=== PATIENT | male | born 1955 | race Caucasian/White ===

== ENCOUNTER 2017-05-14 12:48 | Emergency (ER) | payer OTHER ==
[2017-05-14 13:40] LABS: BASOPHILS 0.3 % (0-2); EOSINOPHILS 1.2 % (0-7); HEMATOCRIT 43.2 % (42.0-54.0); IMMATURE GRANULOCYTES 0.1 % (0-5); LYMPHOCYTES 17.1 % (15-50); MCH 30.5 pg (26.0-34.0); MCHC 34.7 g/dL (31.0-37.0); MEAN PLATELET VOLUME 10.2 fL (7.4-10.4); NEUTROPHILS 74.3 % (40-80); PLATELET COUNT 175 10x3/uL (130-400); RBC 4.91 10x6/uL (4.20-6.10); RDW 12.6 % (11.5-14.5); WBC 7.6 10x3/uL (4.8-10.8)
[2017-05-14 13:53] LABS: CALC OSMOLALITY 283 mosm/kg (275-300); CALCIUM 8.9 mg/dL (8.5-10.1); CARBON DIOXIDE 26.2 mmol/L (21.0-32.0); CHLORIDE - SERUM 107 mmol/L (98-107); GLUCOSE 137 mg/dL (74-106); POTASSIUM - SERUM 4.2 mmol/L (3.5-5.1); SODIUM 141 mmol/L (136-145); UREA NITROGEN 14 mg/dL (7-18); eGFR NON AFRICAN AMERICAN 81 mL/min (90-120)
== END 2017-05-14 15:01 | disposition home or self-care (01) ==
LOC: D.ER 12:48
PROVIDERS: Emergency Medicine
DX: S51.811A Laceration without foreign body of right forearm, initial encounter (principal); X58.XXXA Exposure to other specified factors, initial encounter; Y93.89 Activity, other specified; Y92.89 Other specified places as the place of occurrence of the external cause; Y99.8 Other external cause status

== ENCOUNTER 2019-04-14 17:12 | Inpatient (IN) | payer OTHER ==
[~2019-04-14] VITALS: Ht 180.3 cm; Wt 81.6 kg
[2019-04-14] MEDS ORDERED: PHENERGAN25 M1 PO (18:25)
[2019-04-14] MEDS ORDERED: VIGAMOX3 ML EACH EYE (18:27)
[2019-04-14] MEDS ORDERED: THORAZINE25 MG PO (18:27)
[2019-04-14] MEDS ORDERED: ROBAXIN500 MG PO (18:29)
[2019-04-14] MEDS ORDERED: HYDROCODON-ACE1 EA10 (18:29)
[2019-04-14] MEDS ORDERED: CYCLOBENZAPRINE10 MG PO (18:29)
[2019-04-14] MEDS ORDERED: MEDROL DOSE PACK4 MG (18:30)
--- NOTE | 2019-04-14 18:30 | NUR ---
RECEIVED TO ROOM 2210 AMBULATING. A/O X3. SKIN INTACT WITHOUT REDNESS. DENIES NEEDS.
[2019-04-14 20:00] VITALS: BP 129/94
[2019-04-14 22:57] VITALS: BP 129/94; BMI 25.1
[2019-04-14 23:42] LABS: HEMATOCRIT 39.6 % (42.0-54.0); HEMOGLOBIN 13.7 g/dL (13.5-17.5); MCH 28.8 pg (26.0-34.0); MCHC 34.6 g/dL (31.0-37.0); MCV 83.2 fL (80.0-100.0); MEAN PLATELET VOLUME 9.6 fL (7.4-10.4); PLATELET COUNT 205 10x3/uL (130-400); RBC 4.76 10x6/uL (4.20-6.10); RDW 13.2 % (11.5-14.5); WBC 3.8 10x3/uL (4.8-10.8)
[2019-04-15] VITALS: BP 123/76
[2019-04-15 00:02] LABS: BASOPHILS 1 % (0-2); EOSINOPHILS 6 % (0-7); LYMPHOCYTES 62 % (15-50); MONOCYTES 9 % (2-11); NEUTROPHILS 22 % (40-80); PLATELET ESTIMATE NORMAL
[2019-04-15 00:48] LABS: ALKALINE PHOSPHATASE 61 U/L (46-116); ALT (SGPT) 42 U/L (10-68); AMYLASE - SERUM 50 U/L (25-115); BILIRUBIN - TOTAL 0.66 mg/dL (0.2-1.3); CALC OSMOLALITY 279 mosm/kg (275-300); CALCIUM 8.2 mg/dL (8.5-10.1); CARBON DIOXIDE 28.5 mmol/L (21.0-32.0); CHLORIDE - SERUM 105 mmol/L (98-107); CREATININE - SERUM 0.9 mg/dL (0.6-1.3); GLUCOSE 116 mg/dL (74-106); LIPASE 122 U/L (73-393); POTASSIUM - SERUM 3.6 mmol/L (3.5-5.1); PROTEIN - SERUM 6.7 g/dL (6.4-8.2); SODIUM 140 mmol/L (136-145); UREA NITROGEN 12 mg/dL (7-18); eGFR NON AFRICAN AMERICAN > 90 mL/min (90-120)
[2019-04-15 02:25] LABS: APPEARANCE CLEAR (CLEAR); BILIRUBIN NEGATIVE (NEGATIVE); COLOR YELLOW (YELLOW); GLUCOSE NEGATIVE (NEGATIVE); KETONE SMALL mg/dL (NEGATIVE); NITRITE NEGATIVE (NEGATIVE); PROTEIN NEGATIVE (NEGATIVE); SPECIFIC GRAVITY 1.015 (1.005-1.020); UROBILINOGEN NORMAL (NORMAL)
--- NOTE | 2019-04-15 03:56 | NUR ---
ASSESSED AT THE BEGINNING OF THE SHIFT. PT IS ALERT AND ORIENTED, ABLE TO VERBALIZE NEEDS. HE WAS HAVING ALOT OF ABD PAIN AND AFTER STARTING AN IV IN HIS RIGHT FOREARM WAS GIVEN PAIN MEDS WHICH HELPED ALOT. HE HAS NOT REQUESTED ANY SINCE THEN. HE IS GETTING UP TO THE BATHROOM AD TAMI AND HAS VOICED NO PROBLEMS.
[2019-04-15 04:00] VITALS: BP 138/68
[2019-04-15 06:16] LABS: BASOPHILS 0.9 % (0-2); EOSINOPHILS 7.3 % (0-7); HEMOGLOBIN 13.7 g/dL (13.5-17.5); IMMATURE GRANULOCYTES 0.3 % (0-5); LYMPHOCYTES 60.7 % (15-50); MCH 28.6 pg (26.0-34.0); MCHC 34.3 g/dL (31.0-37.0); MCV 83.5 fL (80.0-100.0); MEAN PLATELET VOLUME 10.1 fL (7.4-10.4); MONOCYTES 15.5 % (2-11); NEUTROPHILS 15.3 % (40-80); PLATELET COUNT 207 10x3/uL (130-400); RBC 4.79 10x6/uL (4.20-6.10); RDW 13.3 % (11.5-14.5); WBC 3.4 10x3/uL (4.8-10.8)
[2019-04-15 06:40] LABS: CALC OSMOLALITY 278 mosm/kg (275-300); CALCIUM 8.2 mg/dL (8.5-10.1); CARBON DIOXIDE 30.4 mmol/L (21.0-32.0); CHLORIDE - SERUM 105 mmol/L (98-107); GLUCOSE 143 mg/dL (74-106); POTASSIUM - SERUM 3.7 mmol/L (3.5-5.1); SODIUM 139 mmol/L (136-145); UREA NITROGEN 11 mg/dL (7-18); eGFR NON AFRICAN AMERICAN 81 mL/min (90-120)
--- NOTE | 2019-04-15 08:07 | NUR ---
PT RESTING IN BED. NPO. EXPLAINED WE NEEDED PT NPO FOR PROCEDURE TODAY. PT "UNDERSTANDS". NO S/S OF ACUTE DISTRESS. CL IN PLACE.
[2019-04-15 09:43] VITALS: BP 127/76
[2019-04-15 10:06] VITALS: BMI 25.1
[2019-04-15 10:27] VITALS: Ht 180.3 cm; Wt 81.6 kg
[2019-04-15 14:17] VITALS: BP 126/80
[2019-04-15 17:44] VITALS: BP 128/81
--- NOTE | 2019-04-15 19:13 | NUR ---
PT RESTING IN BED. PHENERGAN GIVEN X1 THIS SHIFT FOR CO OF NAUSEA. NO CO OF NAUSEA AT THIS TIME. NO S/S OF ACUTE DISTRESS. CL IN PLACE. FRIEND AT BEDSIDE.
--- NOTE | 2019-04-15 19:30 | NUR ---
PT ALERT AND ORIENTED. HOB ELEVATED WHEN ENTERING THE ROOM. PT DOES NOT APPEAR IN ANY DISTRESS. ABDOMEN WITH ACTIVE BOWEL SOUNDS. LEFT LOWER QUADRANT TENDERNESS UPON PALPATION. STATES "WHEN I PUSH IN IT STOPS". PT REPORTS TWO WATERY STOOLS TODAY. COMPLAINS OF INTERMITTENT NAUSEA. NO VOMITTING. HAS RIGHT FOREARM IV THAT IS PATENT. BED IN LOWEST POSITION. SIDE RAILS UP X 2. PATIENT AMBULATORY TO BATHROOM. DOES NOT REPORT AND NEEDS AT THIS TIME. VERBALIZES HOW TO USE CALL LIGHT EFFECTIVELY. CALL LIGHT IN REACH.
[2019-04-15 20:00] VITALS: BP 141/92
[2019-04-16] VITALS: BP 146/80
--- NOTE | 2019-04-16 04:39 | NUR ---
I have reviewed this patient and I concur with the Shift Assessment completed by the Licensed Practical Nurse today this shift.
[2019-04-16 06:38] LABS: HEMATOCRIT 39.8 % (42.0-54.0); HEMOGLOBIN 13.8 g/dL (13.5-17.5); MCH 28.8 pg (26.0-34.0); MCHC 34.7 g/dL (31.0-37.0); MCV 82.9 fL (80.0-100.0); PLATELET COUNT 246 10x3/uL (130-400); RDW 13.1 % (11.5-14.5)
[2019-04-16 07:23] LABS: ALKALINE PHOSPHATASE 62 U/L (46-116); ALT (SGPT) 39 U/L (10-68); BILIRUBIN - TOTAL 0.49 mg/dL (0.2-1.3); CALC OSMOLALITY 283 mosm/kg (275-300); CALCIUM 8.6 mg/dL (8.5-10.1); CARBON DIOXIDE 22.8 mmol/L (21.0-32.0); CHLORIDE - SERUM 107 mmol/L (98-107); CREATININE - SERUM 0.9 mg/dL (0.6-1.3); GLUCOSE 188 mg/dL (74-106); POTASSIUM - SERUM 3.9 mmol/L (3.5-5.1); PROTEIN - SERUM 6.8 g/dL (6.4-8.2); SODIUM 141 mmol/L (136-145); eGFR NON AFRICAN AMERICAN > 90 mL/min (90-120)
[2019-04-16 07:25] LABS: UREA NITROGEN 7 mg/dL (7-18)
--- NOTE | 2019-04-16 07:56 | NUR ---
PT RESTING IN BED. DENIES ANY NEEDS.NO S/S OF ACUTE DISTRESS. CL IN PLACE.
[2019-04-16 09:13] LABS: PLATELET ESTIMATE NORMAL
[2019-04-16 09:15] LABS: ROULEAUX OCC
[2019-04-16 09:42] LABS: ANISOCYTOSIS OCC; CRENATED CELLS OCC; LYMPHOCYTES 41 % (15-50); MONOCYTES 13 % (2-11); NEUTROPHILS 44 % (40-80); PLATELET MORPHOLOGY PLT CLUMPS PRESENT
[2019-04-16 10:13] VITALS: BP 140/77
[2019-04-16 13:54] VITALS: BP 149/79
[2019-04-16 17:49] VITALS: BP 145/84
--- NOTE | 2019-04-16 18:23 | NUR ---
PT RESTING IN BED WATCHING TV. JAMES FULL LIQUID DIET. NO N/V. DENIES PAIN. NO S/S OF ACUTE DISTRESS. CL IN PLACE.
[2019-04-16 21:25] VITALS: BP 142/77
--- NOTE | 2019-04-16 21:30 | NUR ---
PT C/O ABDOMINAL PAIN 04/10. GAVE DEMEROL 50 MG IV PUSH. DENIES NAUSEA. ASSESSMENT COMPLETE PER FLOW-SHEET. NO OTHER NEEDS. WILL CONTINUE TO MONITOR.
[2019-04-17 06:50] LABS: HEMATOCRIT 39.4 % (42.0-54.0); HEMOGLOBIN 13.5 g/dL (13.5-17.5); MCH 28.1 pg (26.0-34.0); MCHC 34.3 g/dL (31.0-37.0); MCV 82.1 fL (80.0-100.0); MEAN PLATELET VOLUME 9.9 fL (7.4-10.4); PLATELET COUNT 255 10x3/uL (130-400); RDW 13.2 % (11.5-14.5)
[2019-04-17 07:31] LABS: ALKALINE PHOSPHATASE 64 U/L (46-116); BILIRUBIN - TOTAL 0.31 mg/dL (0.2-1.3); CALC OSMOLALITY 287 mosm/kg (275-300); CALCIUM 8.4 mg/dL (8.5-10.1); CARBON DIOXIDE 26.5 mmol/L (21.0-32.0); CHLORIDE - SERUM 107 mmol/L (98-107); CREATININE - SERUM 0.8 mg/dL (0.6-1.3); GLUCOSE 192 mg/dL (74-106); POTASSIUM - SERUM 3.7 mmol/L (3.5-5.1); PROTEIN - SERUM 6.7 g/dL (6.4-8.2); SODIUM 143 mmol/L (136-145); UREA NITROGEN 6 mg/dL (7-18); eGFR NON AFRICAN AMERICAN > 90 mL/min (90-120)
[2019-04-17 07:33] LABS: ALT (SGPT) 58 U/L (10-68); WBC 1.8 10x3/uL (4.8-10.8)
--- NOTE | 2019-04-17 08:00 | NUR ---
AWAKE AND ALERT. ORIENTED X3. NO C/O AT THIS TIME. LUNGS ARE CLEAR BILATERALLY, NO COUGH NOTED. SKIN IS INTACT WITHOUT REDNESS. IV TO RIGHT FOREARM IS PATENT WTIHOUT REDNESS AT INSERTION SITE. DENIES NEEDS.
[2019-04-17 08:41] LABS: LYMPHOCYTES 52 % (15-50); MONOCYTES 12 % (2-11); NEUTROPHILS 34 % (40-80); PLATELET ESTIMATE NORMAL; ROULEAUX OCC
[2019-04-17 08:42] LABS: ANISOCYTOSIS OCC
[2019-04-17 09:01] VITALS: BP 140/81
--- NOTE | 2019-04-17 10:30 | NUR ---
ATE MOST OF BREAKFAST AND IV AB UP. DENIES NEEDS.
--- NOTE | 2019-04-17 11:15 | NUR ---
PLACED IN NEUTROPENIC ISOLATION PER ORDERS. DISCUSSED WITH PATIENT. ALL QUESTIONS ANSWERED.
[2019-04-17 13:05] VITALS: BP 145/71
--- NOTE | 2019-04-17 14:49 | NUR ---
NUTRITION F/U PT REMAINS IN NEUTROPENIC ISOLATION. TOLERATING FULL LIQUID DIET WITH 50 TO 75% INTAKE RECENT MEALS. WILL CONTINUE TO MONITOR DIET ADVANCEMENT, PO INTAKE. RD FOLLOWING
[2019-04-17 17:15] VITALS: BP 146/85
--- NOTE | 2019-04-17 19:40 | NUR ---
PT SITTING UP IN BED WITHOUT DISTRESS, ALERT AND ORIENTED. DENIES PAIN OR N/V. TOLERATING FULL LIQUID DIET. IV RIGHT FA INFUSING D5 1/2 NS @ 125. NEUTROPENIC PRECAUTION IN PLACE. SCDS IN PLACE. DENIES NEEDS AT THIS TIME. CL IN REACH, WILL CTM
[2019-04-17 20:00] VITALS: BP 153/75
--- NOTE | 2019-04-17 22:30 | NUR ---
PT GIVEN WATER, POPSICLE AND JELLO UPON REQUEST. TOLERATED WELL
--- NOTE | 2019-04-17 23:30 | NUR ---
ASSISTED PT IN SHOWER SET UP. PT SHOWERED INDEPENDENTLY, LINENS CHANGED AT THIS TIME
[2019-04-18 05:55] LABS: BASOPHILS 0 % (0-2); EOSINOPHILS 0 % (0-7); HEMATOCRIT 40.3 % (42.0-54.0); IMMATURE GRANULOCYTES 0.6 % (0-5); LYMPHOCYTES 60.5 % (15-50); MCH 28.5 pg (26.0-34.0); MCHC 34.7 g/dL (31.0-37.0); MCV 82.1 fL (80.0-100.0); MEAN PLATELET VOLUME 9.9 fL (7.4-10.4); NEUTROPHILS 17.9 % (40-80); PLATELET COUNT 274 10x3/uL (130-400); RBC 4.91 10x6/uL (4.20-6.10); RDW 13.5 % (11.5-14.5)
[2019-04-18 05:58] LABS: WBC 1.7 10x3/uL (4.8-10.8)
[2019-04-18 06:02] LABS: ALKALINE PHOSPHATASE 62 U/L (46-116); BILIRUBIN - TOTAL 0.38 mg/dL (0.2-1.3); CALCIUM 8.5 mg/dL (8.5-10.1); CARBON DIOXIDE 28.1 mmol/L (21.0-32.0); CHLORIDE - SERUM 106 mmol/L (98-107); CREATININE - SERUM 0.9 mg/dL (0.6-1.3); GLUCOSE 193 mg/dL (74-106); POTASSIUM - SERUM 3.7 mmol/L (3.5-5.1); PROTEIN - SERUM 6.7 g/dL (6.4-8.2); SODIUM 141 mmol/L (136-145); eGFR NON AFRICAN AMERICAN > 90 mL/min (90-120)
[2019-04-18 06:03] LABS: ALT (SGPT) 80 U/L (10-68); CALC OSMOLALITY 284 mosm/kg (275-300); UREA NITROGEN 10 mg/dL (7-18)
[2019-04-18 06:26] VITALS: BP 140/78
--- NOTE | 2019-04-18 08:02 | NUR ---
AWAKE AND ALERT. ORIENTED X3. NO C/O AT THIS TIME. UP TO BR PER SELF. VOIDED CLEAR YELLOW URINE WITHOUT DIFFICULTY. LUNGS ARE CLEAR BILATERALLY, NO COUGH NOTED. SKIN IS INTACT WITHOUT REDNESS. IV TO RIGHT FOREARM IS PATENT WITHOUT REDNESS AT INSERTION SITE. DENIES NEEDS.
[2019-04-18 09:30] VITALS: BP 146/96
--- NOTE | 2019-04-18 11:00 | NUR ---
ATE MOST OF FULL LIQUID BREAKFAST. DENIES NEEDS. GIVEN MIRALAX PER ORDERS. WILL MONITOR.
[2019-04-18 12:49] VITALS: BP 135/76
[2019-04-18 17:44] VITALS: BP 157/91
--- NOTE | 2019-04-18 19:29 | NUR ---
ATE ALL OF SUPPER NO C/O AT THIS TIME. DENIES NEEDS.
--- NOTE | 2019-04-18 19:45 | NUR ---
PT SITTING UP IN BED, NO SIGNS OF DISTRESS. ALERT AND ORIENTED. DENIES PAIN OR NEEDS. IV RIGHT FA INFUSING D5 1/2 NS @ 125. NEUTROPENIC PRECAUTIONS IN PLACE. REMINDED PT WE NEED STOOL SAMPLE. PT REFUSES SCDS AT THIS TIME. REMINDED HE IS NPO AFTER MN, VERBALIZED UNDERSTANDING. CL IN REACH, WILL CTM
[2019-04-18 20:40] VITALS: BP 150/86
[2019-04-19] VITALS (12 sets, daily range): BP systolic 108–160; BP diastolic 55–96
[2019-04-19 04:48] LABS: HEMATOCRIT 40.9 % (42.0-54.0); HEMOGLOBIN 14.4 g/dL (13.5-17.5); MCH 28.7 pg (26.0-34.0); MCHC 35.2 g/dL (31.0-37.0); MCV 81.5 fL (80.0-100.0); MEAN PLATELET VOLUME 9.6 fL (7.4-10.4); PLATELET COUNT 259 10x3/uL (130-400); RBC 5.02 10x6/uL (4.20-6.10); RDW 13.3 % (11.5-14.5)
[2019-04-19 04:54] LABS: WBC 2.2 10x3/uL (4.8-10.8)
[2019-04-19 05:15] LABS: APTT 28.2 SECONDS (22.8-39.4); INR 1.16 (0.85-1.17); PROTIME 14.3 SECONDS (11.6-15.0)
[2019-04-19 05:22] LABS: ALKALINE PHOSPHATASE 63 U/L (46-116); BILIRUBIN - TOTAL 0.56 mg/dL (0.2-1.3); CALC OSMOLALITY 285 mosm/kg (275-300); CALCIUM 8.3 mg/dL (8.5-10.1); CARBON DIOXIDE 26.6 mmol/L (21.0-32.0); CHLORIDE - SERUM 105 mmol/L (98-107); CREATININE - SERUM 0.9 mg/dL (0.6-1.3); GLUCOSE 183 mg/dL (74-106); PROTEIN - SERUM 6.6 g/dL (6.4-8.2); SODIUM 141 mmol/L (136-145); UREA NITROGEN 12 mg/dL (7-18); eGFR NON AFRICAN AMERICAN > 90 mL/min (90-120)
[2019-04-19 05:25] LABS: ALT (SGPT) 104 U/L (10-68)
[2019-04-19 05:43] LABS: LYMPHOCYTES 65 % (15-50); MONOCYTES 5 % (2-11); NEUTROPHILS 29 % (40-80); PLATELET ESTIMATE NORMAL
--- NOTE | 2019-04-19 08:07 | NUR ---
AWAKE AND ALERT. ORIENTED X3. NO C/O AT THIS TIME. LUNGS ARE CLEAR BILATERALLY, NO COUGH NOTED. SKIN IS INTACT WITHOUT REDNESS. IV TO RIGHT FOREARM IS PATENT WTIHOUT REDNESS AT INSERTION SITE. NPO FOR PROCEDURE. AT BEDSIDE. DENIES NEEDS. IR HERE TO TRANSPORT FOR PROCEDURE.
[2019-04-19 09:12] LABS: IMMUNOGLOBULIN A 261 mg/dL (61-437); IMMUNOGLOBULIN G 1125 mg/dL (700-1600); IMMUNOGLOBULIN M 82 mg/dL (20-172)
--- NOTE | 2019-04-19 09:15 | NUR ---
RETURNED FROM [facility]. A/O X3. DENIES NEEDS.
[2019-04-19 11:14] LABS: ANA REFLEX - DIRECT Negative (Negative); HEPATITIS C ANTIBODY 0.1 S/CO RAT (0.0-0.9)
--- NOTE | 2019-04-19 11:14 | NUR ---
ATE 100% OF FULL LIQUID BREAKFAST. VSS. NO C/O VOICED.
--- NOTE | 2019-04-19 15:00 | NUR ---
HAD SMALL WATERY BM. SPECIMEN SENT TO LAB.
--- NOTE | 2019-04-19 18:27 | NUR ---
SITTING UP IN BED EATING DINNER. AT BEDSIDE. DENIES NEEDS. NO CHANGES NOTED. NO FURTHER BM AFTER MAG CITRATE.
[2019-04-20 03:07] LABS: IMMUNOGLOBULIN D <1.34 mg/dL (<14.11)
[2019-04-20 04:55] VITALS: BP 128/78
[2019-04-20 05:24] LABS: BASOPHILS 0 % (0-2); EOSINOPHILS 0 % (0-7); HEMATOCRIT 40.4 % (42.0-54.0); HEMOGLOBIN 14.2 g/dL (13.5-17.5); IMMATURE GRANULOCYTES 0.4 % (0-5); LYMPHOCYTES 43.7 % (15-50); MCH 28.6 pg (26.0-34.0); MCHC 35.1 g/dL (31.0-37.0); MCV 81.5 fL (80.0-100.0); MEAN PLATELET VOLUME 9.9 fL (7.4-10.4); MONOCYTES 17.2 % (2-11); NEUTROPHILS 38.7 % (40-80); PLATELET COUNT 253 10x3/uL (130-400); RBC 4.96 10x6/uL (4.20-6.10); RDW 13.3 % (11.5-14.5); WBC 2.4 10x3/uL (4.8-10.8)
[2019-04-20 05:40] LABS: ALKALINE PHOSPHATASE 59 U/L (46-116); ALT (SGPT) 95 U/L (10-68); BILIRUBIN - TOTAL 0.54 mg/dL (0.2-1.3); CALC OSMOLALITY 282 mosm/kg (275-300); CHLORIDE - SERUM 103 mmol/L (98-107); CREATININE - SERUM 0.9 mg/dL (0.6-1.3); GLUCOSE 198 mg/dL (74-106); POTASSIUM - SERUM 4.1 mmol/L (3.5-5.1); PROTEIN - SERUM 6.3 g/dL (6.4-8.2); SODIUM 138 mmol/L (136-145); UREA NITROGEN 14 mg/dL (7-18); eGFR NON AFRICAN AMERICAN > 90 mL/min (90-120)
[2019-04-20 09:38] VITALS: BP 143/84
--- NOTE | 2019-04-20 11:05 | NUR ---
MORNING ASSESSMENT COMPLETE. SEE ASSESSMENT FLOWSHEET FOR FURHTER DETAILS. PT LYING IN BED AAO X4 TO PERSON, PLACE, TIME, AND SITUATION. DENES NEEDS AT THIS TIME. CL IN REACH. SIDE RAILS UP X3 FOR PT SAFETY. BED IN LOWEST POSITION.
[2019-04-20 12:11] LABS: EBV - EARLY ANTIGEN AB IGG 78.1 U/mL (0.0-8.9); EBV - NUCLEAR ANTIGEN AB IGG 85.8 U/mL (0.0-17.9); EBV VIRAL CAPSID AB IGG >600.0 U/mL (0.0-17.9); EBV VIRAL CAPSID AB IGM <36.0 U/mL (0.0-35.9)
[2019-04-20 13:55] VITALS: BP 131/81
--- NOTE | 2019-04-20 14:10 | MORECARE ---
CASE MANAGEMENT DISCHARGE SUMMARY PATIENT: NATALIE SCHAFER JR UNIT: [id number] ADM DATE: 04/14/19 AGE: 63 : 59 SEX: M ROOM/BED: D.2210 AUTHOR: MARIA ALEJANDRA FLETCHER PHYSICIAN: REFERRING PHYSICIAN: LISETH GUERRA MD DATE OF SERVICE: 04/20/19 Discharge Plan Patient Name: NATALIE SCHAFER Facility: [facility]:[place] : 1955 Planned Disposition: Home Anticipated Discharge Date: Discharge Date: Expected LOS: Initial Reviewer: [email or web address] Initial Review Date: 04/14/2019 Generated: 04/20/19 3:10 pm Comments DCP- Discharge Planning Updated by [email or web address]: Giovana Jaramillo on 04/20/19 1:[address] Patient Name: NATALIE SCHAFER Admission Status: Urgent Accout number: [id number] Admission Date: 04-14-2019 : 1955 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 CM educated patient on the CM role and verbal consent given by patient to complete assessment. Patient lives at home with his where he is independent with his care. At discharge patient plans to return home and feels this is a safe discharge. 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 CM discussed availability of home health, rehab services, and medical equipment. Patient denied known discharge needs at this time. CM will continue to follow and will assist as needed with dc plans/needs. Acquisition Professional: Giovana Jaramillo DCPIA - Discharge Planning Initial Assessment Updated by [email or web address]: Giovana Jaramillo on 04/20/19 2:05 pm * Is the patient Alert and Oriented? Yes * How many steps to enter\exit or inside your home? * PCP MITZI * Pharmacy [facility] * Preadmission Environment Home with Family * ADLs Independent * Equipment None * List name and contact numbers for known caregivers / representatives who currently or will assist patient after discharge: LANETTE SCHAFER [phone] * Verbal permission to speak to the caregivers and representatives has been obtained from the patient. N/A * Community resources currently utilized None * Additional services required to return to the preadmission environment? No * Can the patient safely return to the preadmission environment? Yes * Has this patient been hospitalized within the prior 30 days at any hospital? No Patient Name: NATALIE SCHAFER Page [phone] at 1410 All edits/amendments must be made on the electronic document DICTATION DATE: 04/20/191408 CHEMICAL RESEARCH ENGINEER: DERICK 04/20/191408 RPT#: [id number] DC DATE: STATUS: ADM IN [facility] [address] [place] [address] END OF REPORT
[2019-04-20 17:34] VITALS: BP 116/68
[2019-04-20 18:07] LABS: ACID FAST SMEAR Negative (()); AFB SPECIMEN PROCESSING Concentration (())
--- NOTE | 2019-04-20 19:30 | NUR ---
ALERT AND ORIENTED. AT BEDSIDE. PT ON NEUTROPENIC PRECAUTIONS. ABIDING PRECAUTIONS ORDERED BY MD. DOES NOT STATE ANY PAIN AT THIS TIME. HAS RIGHT FA IV THAT IS PATENT WITHOUT REDNESS OR TENDERNESS TO THE INSERTION SITE. ROOM AIR. USES CALL LIGHT APPROPRIATELY. DENIES FURTHER NEEDS AT THIS TIME. CALL LIGHT IN REACH.
[2019-04-20 20:00] VITALS: BP 135/78
--- NOTE | 2019-04-21 03:00 | NUR ---
I have reviewed this patient and I concur with the Shift Assessment completed by the Licensed Practical Nurse today this shift.
[2019-04-21 05:21] VITALS: BP 136/78
[2019-04-21 06:45] LABS: HEMOGLOBIN 14.9 g/dL (13.5-17.5); MCH 28.9 pg (26.0-34.0); MCHC 35.5 g/dL (31.0-37.0); MCV 81.4 fL (80.0-100.0); MEAN PLATELET VOLUME 10.1 fL (7.4-10.4); PLATELET COUNT 285 10x3/uL (130-400); RBC 5.16 10x6/uL (4.20-6.10); RDW 13.5 % (11.5-14.5); WBC 2.6 10x3/uL (4.8-10.8)
[2019-04-21 07:07] LABS: CALC OSMOLALITY 284 mosm/kg (275-300); CALCIUM 8.5 mg/dL (8.5-10.1); CARBON DIOXIDE 27.1 mmol/L (21.0-32.0); CHLORIDE - SERUM 105 mmol/L (98-107); CREATININE - SERUM 0.8 mg/dL (0.6-1.3); GLUCOSE 180 mg/dL (74-106); POTASSIUM - SERUM 4.1 mmol/L (3.5-5.1); SODIUM 140 mmol/L (136-145); UREA NITROGEN 16 mg/dL (7-18); eGFR NON AFRICAN AMERICAN > 90 mL/min (90-120)
--- NOTE | 2019-04-21 07:30 | NUR ---
PT IS WITHOUT DISTRESS.HE IS AWAKE AND WANTS BREAKFAST SOON. NEUTROPENIC ISOATION MAINTAINED
--- NOTE | 2019-04-21 08:00 | NUR ---
ASSESSMENT PER FLOW SHEET. PT IS WITHOUT DISTRESS.MONITOR FOR NEEDS.
[2019-04-21 08:43] LABS: LYMPHOCYTES 44 % (15-50); MONOCYTES 9 % (2-11); NEUTROPHILS 46 % (40-80); PLATELET ESTIMATE NORMAL
[2019-04-21] MEDS ORDERED: LEVOFLOXACIN500 MG PO (09:17)
[2019-04-21] MEDS ORDERED: FLAGYL500 MG PO (09:18)
[2019-04-21] MEDS ORDERED: PREDNISONE10 MG PO (09:19)
[2019-04-21] MEDS ORDERED: MIRALAX17 GM PO (09:20)
--- NOTE | 2019-04-21 10:08 | MORECARE ---
CASE MANAGEMENT DISCHARGE SUMMARY PATIENT: NATALIE SCHAFER JR UNIT: [id number] ADM DATE: 04/14/19 AGE: 63 : 59 SEX: M ROOM/BED: D.2210 AUTHOR: JUSTINE,DOC PHYSICIAN: REFERRING PHYSICIAN: LISETH GUERRA MD DATE OF SERVICE: 04/21/19 Discharge Plan Patient Name: NATALIE SCHAFER Facility: [facility]:[place] : 1955 Planned Disposition: Home Anticipated Discharge Date: Discharge Date: Expected LOS: Initial Reviewer: [email or web address] Initial Review Date: 04/14/2019 Generated: 04/21/19 11:08 am Comments DCP- Discharge Planning Updated by [email or web address]: Giovana Jaramillo on 04/21/19 9:[address] Patient Name: NATALIE SCHAFER Encounter No: [id number] : 1955 Primary Insurance: [facility] [employer] Anticipated DC Date: Planned Disposition: Home External Planned Provider: : DCP follow-up note: Patient and family in agreement with discharge plan. No changes to plan. Case management will follow and assist as needed. 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 CM educated patient on the CM role and verbal consent given by patient to complete assessment. Patient lives at home with his where he is independent with his care. At discharge patient plans to return home and feels this is a safe discharge. 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 CM discussed availability of home health, rehab services, and medical equipment. Patient denied known discharge needs at this time. CM will continue to follow and will assist as needed with dc plans/needs. Physical Chemist: Giovana Jaramillo DCPIA - Discharge Planning Initial Assessment Updated by [email or web address]: Giovana Jaramillo on 04/20/19 2:05 pm * Is the patient Alert and Oriented? Yes * How many steps to enter\exit or inside your home? * PCP MITZI * [facility] * Preadmission Environment Home with Family * ADLs Independent * Equipment None * List name and contact numbers for known caregivers / representatives who currently or will assist patient after discharge: LANETTE SCHAFER [phone] * Verbal permission to speak to the caregivers and representatives has been obtained from the patient. N/A * Community resources currently utilized None * Additional services required to return to the preadmission environment? No * Can the patient safely return to the preadmission environment? Yes * Has this patient been hospitalized within the prior 30 days at any hospital? No Last DP export: 04/20/19 1:10 p Patient Name: NATALIE SCHAFER Page 13377 at 1008 All edits/amendments must be made on the electronic document DICTATION DATE: 04/21/19 1008 SENIOR CENTER DIRECTOR: DERICK 04/21/19 1008 RPT#: [id number] DC DATE: STATUS: ADM IN [facility] [address] [place] [address] END OF REPORT
[2019-04-21 10:30] VITALS: BP 131/90
--- NOTE | 2019-04-21 10:35 | NUR ---
DISCHARGE INSTRUCTIONS,STATES UNDERSTANDING.WAITING ON RIDE. HIS WILL COME SOMETIME AFTER NOON.IV DCD WITH CATH TIP INTACT.WAITING ON GRANIX INJECTION FROM PHARMACY
[2019-04-21 12:00] VITALS: BP 136/73
[2019-04-21 12:11] LABS: FUNGUS STAIN Final report (())
[2019-04-21] MEDS ORDERED: PROTONIX40 MG PO (12:32)
[2019-04-21] MEDS ORDERED: PHENERGAN25 M1 PO (12:32)
--- NOTE | 2019-04-21 14:59 | NUR ---
HERE FOR PICKUP AND TRANSPORT HOME.LEFT UNIT VIA WHEELCHAIR
[2019-04-23 11:07] LABS: IMMUNOGLOBULIN E 8 IU/mL (6-495)
--- NOTE | 2019-04-24 08:43 | MORECARE ---
CASE MANAGEMENT DISCHARGE SUMMARY PATIENT: NATALIE SCHAFER JR UNIT: [id number] ADM DATE: 04/14/19 AGE: 63 : 59 SEX: M ROOM/BED: D.2210 AUTHOR: MARIA ALEJANDRA FLETCHER PHYSICIAN: REFERRING PHYSICIAN: LISETH GUERRA MD DATE OF SERVICE: 04/24/19 Discharge Plan Patient Name: NATALIE SCHAFER Facility: [facility]:[place] : 1955 Planned Disposition: Home Anticipated Discharge Date: Discharge Date: 04/21/2019 Expected LOS: Initial Reviewer: [email or web address] Initial Review Date: 04/14/2019 Generated: 04/24/19 9:43 am Comments DCP- Discharge Planning Updated by [email or web address]: Giovana Jaramillo on 04/21/19 9:[address] Patient Name: NATALIE SCHAFER Encounter No: [id number] : 1955 Primary Insurance: [facility] [employer] Anticipated DC Date: Planned Disposition: Home External Planned Provider: : DCP follow-up note: Patient and family in agreement with discharge plan. No changes to plan. Case management will follow and assist as needed. 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 [employer] Discharge Planning Comments: CM met with patient to complete initial dc planning assessment. CM educated patient on the CM role and verbal consent given by patient to complete assessment. Patient lives at home with his where he is independent with his care. At discharge patient plans to return home and feels this is a safe discharge. 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 CM discussed availability of home health, rehab services, and medical equipment. Patient denied known discharge needs at this time. CM will continue to follow and will assist as needed with dc plans/needs. Internet Merchant: Giovana Jaramillo DCPIA - Discharge Planning Initial Assessment Updated by [email or web address]: Giovana Jaramillo on 04/20/19 2:05 pm * Is the patient Alert and Oriented? Yes * How many steps to enter\exit or inside your home? * PCP [facility]ZI * [facility] * Preadmission Environment Home with Family * ADLs Independent * Equipment None * List name and contact numbers for known caregivers / representatives who currently or will assist patient after discharge: LANETTE SCHAFER [phone] * Verbal permission to speak to the caregivers and representatives has been obtained from the patient. N/A * Community resources currently utilized None * Additional services required to return to the preadmission environment? No * Can the patient safely return to the preadmission environment? Yes * Has this patient been hospitalized within the prior 30 days at any hospital? No Last DP export: 04/21/19 9:08 a Patient Name: NATALIE SCHAFER Page 01984 at 0843 All edits/amendments must be made on the electronic document DICTATION DATE: 04/24/19842 CUPOLA TENDER: DERICK 04/24/19842 RPT#: [id number] DC DATE:04/21/19 STATUS: DIS IN [facility] [address] [place] [address] END OF REPORT
== END 2019-04-21 15:00 | disposition home or self-care (01) | DRG 988 ==
LOC: D.MS 17:12
PROVIDERS: Family Medicine; Internal Medicine Hematology & Oncology; Internal Medicine Nephrology; Radiology Vascular & Interventional Radiology; ADMIT Emergency Medicine; ATTEND Emergency Medicine
PROC: 07DR3ZX Extraction of Iliac Bone Marrow, Percutaneous Approach, Diagnostic (ICD-10-PCS; 2019-04-19)
PROC: 0QB23ZX Excision of Right Pelvic Bone, Percutaneous Approach, Diagnostic (ICD-10-PCS; principal; 2019-04-19 08:26)
DX: K50.10 Crohn's disease of large intestine without complications (principal); F32.1 Major depressive disorder, single episode, moderate; A09 Infectious gastroenteritis and colitis, unspecified; E86.0 Dehydration; K52.82 Eosinophilic colitis; K21.9 Gastro-esophageal reflux disease without esophagitis; K59.09 Other constipation; D70.9 Neutropenia, unspecified; D72.819 Decreased white blood cell count, unspecified

== ENCOUNTER → 2019-07-28 09:11 | Outpatient (CLI) | payer OTHER ==
[2019-04-15 10:27] VITALS: BMI 25.1
[~2019-07-28 09:11] MED LIST: CYCLOBENZAPRINE10 MG PO; FLAGYL500 MG PO; HYDROCODON-ACE1 EA10; LEVOFLOXACIN500 MG PO; MEDROL DOSE PACK4 MG; MIRALAX17 GM PO; PHENERGAN25 M1 PO; PREDNISONE10 MG PO; PROTONIX40 MG PO; ROBAXIN500 MG PO; THORAZINE25 MG PO; VIGAMOX3 ML EACH EYE
--- NOTE | 2019-07-31 14:34 | ST ---
PATIENT:NATALIE SCHAFER JR MEDICAL RECORD: [id number] SEX: M LOCATION:[facility] ORDER #: ADMISSION DATE: 07/28/19 AGE OF PATIENT: 64 REFERRING PHYSICIAN: INTERPRETING PHYSICIAN: DIETER PAZ MD DATE OF SERVICE: 07/28/2019 PROCEDURE: Nuclear stress test. INDICATIONS: Angina, hypertension, shortness of breath. He was exercised on a standard Kevin protocol for 7 minutes achieving 85% max target heart rate response with 33 mCi of sestamibi injected at peak stress, 11 mCi used previously for rest images. FINDINGS: Gated SPECT reveals preserved ejection fraction at 64% with good wall motioning and thickening and brightening throughout all segments. SPECT imaging: Cardiolite was used as myocardial perfusion agent. There is reversibility inferiorly and apically. This includes the basal, mid, apical, inferior segments as well as the apex itself. The degree of reversibility is moderate. The amount of myocardium involved is moderate. OVERALL IMPRESSION: This is an intermediate risk abnormal nuclear stress test with a moderate amount of myocardium involved with reversibility inferiorly and apically. TRANSINT:[id number] Voice Confirmation ID: [id number] DOCUMENT ID: [id number] DIETER PAZ MD at 1434 CC: [id number] DICTATION DATE: 07/30/19 1233 MOBILE HOMES REPAIRER: 07/31/19 0014 DEP CLI 07/28/[address] [address]
--- NOTE | 2019-07-31 14:34 | EC ---
PATIENT:NATALIE SCHAFER JR DATE OF SERVICE: 07/28/19 SEX: M MEDICAL RECORD: [id number] DATE OF : [birth year] [facility] AGE OF PATIENT: 64 ADMISSION DATE: 07/28/19 REFERRING PHYSICIAN: INTERPRETING PHYSICIAN: DIETER WRIGHT MD ECHOCARDIOGRAM REPORT ECHO CHARGES 4 ECHO COMPLETE Date: 07/28/19 CLINICAL DIAGNOSIS: HTN ECHOCARDIOGRAPHIC MEASUREMENTS (adult normal given) AC root (d.<3.7cm) 3.4 cm LV Septum d (<1.2 cm> 1.4 cm Valve Excursion 1.8 cm LV Septum (systole) 1.6 cm Left Atria (s.<4.0cm> 4.1 cm LVPW d(<1.2cm) 1.5 cm RV (d.<2.3cm) 4.6 cm LVPW (sytole) 1.8 cm LV diastole(<5.6CM) 4.3 cm MV E-F(>70mm/sec) cm LV systole 2.8 cm LVOT Diameter 1.9 cm MV exc.(>10mm) 1.4 cm Est.ejection fraction (50-75%) % DOPPLER: LVIT cm/sec A 81.0 cm/sec E 59.0 cm/sec LA cm/sec RVSP 36 mmHg LVOT 96 cm/sec AOP1/2T m/s Asc. Ao 112 cm/sec RVOT 61 cm/sec RA cm/sec PA 76 cm/sec AV Gradient Peak 5.05 mmHg AV Mean 2.25 mmHg AV Area 2.3 cm MV Gradient Peak 2.48 mmHg MV Mean 0.97 mmHg MV Area cm COMMENTS: [place] Worker: Diamond CHAUDHARI Senior Media Director: 1 Dr. Wright TAPE# PACS Pericardial Effusion N DATE OF SERVICE: PROCEDURE: Echocardiogram. FINDINGS: 1. Left ventricular chamber size is within normal limits. Left ventricular systolic function is normal. Overall ejection fraction estimated at 60%. 2. Left atrium is enlarged at 4.1 cm. Right atrium and right ventricular chamber sizes are as well mildly dilated. 3. Valvular structures have normal structure and motion. ECHOCARDIOGRAM REPORT [id number] NATALIE SCHAFER JR 4. Doppler interrogation reveals mild mitral regurgitation, mild tricuspid regurgitation, no other valvular insufficiency or stenosis. Pulmonary systolic pressure is estimated 36 mmHg. 5. No evidence of pericardial effusion or left ventricular thrombus. TRANSINT:[id number] Voice Confirmation ID: [id number] DOCUMENT ID: [id number] DIETER WRIGHT MD at 1434 CC: [id number] DICTATION DATE: 07/31/19 1021 HAND RIGGER: 07/31/19 1201 DEP CLI 07/28/19 [place] [id number] [place] [id number]
== END | disposition home or self-care (01) ==
LOC: D.HCCECHO 09:11
PROVIDERS: ATTEND Internal Medicine Interventional Cardiology
DX: I10 Essential (primary) hypertension (principal)

== ENCOUNTER 2019-08-29 08:54 | Inpatient (IN) | payer OTHER ==
[~2019-08-29] VITALS: Ht 180.3 cm; Wt 85.5 kg
[2019-08-29] VITALS (12 sets, daily range): BP systolic 120–161; BP diastolic 70–95; Ht 180.3 cm; Wt 85.5 kg
--- NOTE | ~2019-08-29 | HEMODYNAMI ---
PATIENT:NATALIE SCHAFER JR MEDICAL RECORD: [id number] : 59 LOCATION:D.CAT ADMISSION DATE: 08/29/19 Generatedon:08/29/201912:14 Patient name: NATALIE SCHAFER Patient #: [id number] : 1955 Date of study: 08/29/2019 Page: Of Hemodynamic Procedure Report Patient Data Patient Demographics Procedure consent was obtained First Name: NATALIE Gender: Male Last Name: HANH Suffix: Jr Whaley Initial: Mechelle : 1955 Patient #: [id number] Age: 64 year(s) Race: SSN: [id number] Additional ID: [id number] Contact details Address: [place] [address] State: [place] City: [place] Zip code: [address] Admission Admission Data Admission Date: 08/29/2019 Admission Time: 8:54 Arrival Date: 08/29/2019 Arrival Time: 10:30 Admit Source: Other Insurance Payor: Private health insurance [facility] #: [id number] Height (in.): 70.87 BSA: 2.04 (m2) Height (cm.): 180 BMI: 25.93 (kg/m2) Weight (lbs.): 185.19 Weight (kg.): 84 Lab Results Lab Result Date: 08/29/2019 Lab Result Time: 0:00 Biochemistry Name Units Result Min Max BUN mg/dl 13 --(--*-)-- 7 18 Creatinine mg/dl 1.1 --(--*-)-- 0.6 1.3 eGFR ml/min 72 *-(----)-- 90 120 NONAFRICAN CBC Name Units Result Min Max Hemoglobin g/dl 15.9 --(--*-)-- 13.5 17.5 Procedure Procedure Types Cath Procedure Diagnostic Procedure [facility] LH w/Coronaries FFR/IVUS FFR Initial Sedation Charges Moderate Sedation up to 30 minutes PCI Procedure Coronary Stent Coronary Stent Initial Coronary Stent Additional Procedure Description Procedure Date Procedure Date: 08/29/2019 Procedure Start Time: 11:18 Procedure End Time: 12:11 Procedure Staff Name Function Berry Wright MD Performing Physician Almita Gtz RT Monitor Rowena Fraire RT Scrub Geetha Rosario RN Nurse Indication Angina Procedure Data Cath Procedure Fluoroscopy Diagnostic fluoroscopy Total fluoroscopy Time: 16 time: 16 min min Diagnostic fluoroscopy Total fluoroscopy dose: dose: 1598 mGy 1598 mGy Contrast Material Contrast Material Type Amount (ml) Isovue 300 253 Entry Location Entry Primary Successful Side Size Upsize Upsize Entry Closure Zamudio ccessful Closure Location (Fr) 1 (Fr) 2 (Fr) Remarks Device Remarks Radial Right 6 Fr Mechanical artery Short Compression Estimated blood loss: 5 ml Diagnostic catheters Device Type Used For End Catheter Placement DIAGNOSTIC [place] 110cm 5 Multi-vessel Fr catheter ([id number]) Angiography Procedure Complications No complications Procedure Medications Medication Administration Route Dosage 0.9% NaCl I.V. 100 ml/hr Oxygen etCO2 Nasal cannula 2 l/min Lidocaine 2% added to field 20 Heparin Flush Bag added to field 2 bags (1000units/500ml NS) Radial Cocktail added to field 1 syringe (Verapamil 2mg/Nitro 400mcg/Heparin 1500units) Versed I.V. 2 mg Fentanyl I.V. 50 mcg Heparin Bolus I.V. 4000 units Integrilin (Bolus I.V. 7.3 ml 2mg/ml) Plavix P.O. 600 mg Integrilin (Bolus wasted 2.7 ml 2mg/ml) Nitroglycerin IC/IA I.C. 500 mcg Nitroglycerin IC/IA I.C. 500 mcg Fentanyl I.V. 50 mcg Nitroglycerin IC/IA I.C. 500 mcg Morphine I.V. 4 mg Hemodynamics Rest BSA: 2.04 (m2) HGB: 15.9 (g/dl) O2 Consumption: Estimated: 236 (ml/min) O2 Consu mption indexed: Estimated:115.69 (ml/min/m) Heart Rate: 66 (bpm) Pressure Samples Time Site Value (mmHg) Purpose Heart Use Rate(bpm) 11:20 LV 155/35,66 Snapshot 78 Snapshots Pre Cath Intra NCS Post Cath Vital Signs Time Heart Resp SPO2 etCO2 NIBP (mmHg) Rhythm Pain Status Sedation Rate (ipm) (%) (mmHg) Level (bpm) 10:55:07 67 12 98 13 152/101(117) NSR 0 (11) , No 10(A) pain 10:59:21 67 14 99 33.9 142/97(126) NSR 0 (11) , No 10(A) pain 11:03:31 66 15 100 26.3 150/91(119) NSR 0 (11) , No 10(A) pain 11:07:43 72 13 99 30.8 150/94(116) NSR 0 (11) , No 10(A) pain 11:11:57 70 13 99 33.1 145/93(125) NSR 0 (11) , No 10(A) pain 11:16:07 66 12 99 33.1 134/94(120) NSR 0 (11) , No 10(A) pain 11:21:06 79 13 98 33.1 Measuring NSR 0 (11) , No 9(A) pain 11:21:16 80 13 99 30.1 149/87(123) NSR 0 (11) , No 9(A) pain 11:25:34 71 11 97 32.4 139/81(112) NSR 0 (11) , No 9(A) pain 11:29:48 68 12 98 30.9 140/77(107) NSR 0 (11) , No 9(A) pain 11:33:58 67 14 98 32.3 138/91(107) NSR 0 (11) , No 9(A) pain 11:38:08 68 11 100 32.4 149/91(117) NSR 0 (11) , No 9(A) pain 11:42:22 77 14 100 30.8 140/88(124) NSR 0 (11) , No 9(A) pain 11:46:34 72 16 100 33.9 134/87(103) NSR 8 (11) , 10(A) Utterly horrible 11:50:48 64 14 98 32.4 119/73(96) NSR 8 (11) , 10(A) Utterly horrible 11:54:56 71 12 98 30.8 114/72(102) NSR 8 (11) , 10(A) Utterly horrible 11:59:00 61 10 97 30.1 125/77(91) NSR 2 (11) , 10(A) Uncomfortable 12:03:07 55 8 99 32.3 121/78(103) NSR 2 (11) , 10(A) Uncomfortable Medications Time Medication Route Dose Verified Delivered Reason Not es Effectiveness by by 10:55:47 0.9% NaCl I.V. 100 Berry Geetha used for ml/hr Adriana Rosario pin cleaner 10:55:53 Oxygen etCO2 2 l/min Berry Geetha used for Nasal Adriana Rosario procedure cannula RN 10:55:58 Lidocaine 2% added 20ml Berry Berry for local to vial Adriana Wright MD anesthetic field 10:56:03 Heparin Flush added 2 bags Berry Smart used for Bag to Adriana Wright MD procedure (1000units/500ml field NS) 10:56:08 Radial Cocktail added 1 Berry Smart used for (Verapamil to syringe Adriana Wright MD procedure 2mg/Nitro field 400mcg/Heparin 1500units) 11:18:04 Versed I.V. 2 mg Berry Geetha for sedation Adriana Rosario RN 11:18:08 Fentanyl I.V. 50 mcg Berry Geetha for sedation Adriana Rosario RN 11:25:42 Heparin Bolus I.V. 4000 Berry Geetha for units Adriana Rosario anticoagulation RN 11:25:52 Integrilin I.V. 7.3 ml Berry Geetha for (Bolus 2mg/ml) Adriana Rosario antiplatelet RN therapy 11:26:00 Plavix P.O. 600 mg Berry Geetha for Adriana Rosario antiplatelet RN therapy 11:26:21 Integrilin wasted 2.7 ml Berry Geetha for (Bolus 2mg/ml) Adriana Rosario antiplatelet RN therapy 11:45:30 Nitroglycerin I.C. 500 mcg Berry Smart for IC/IA Adriana Wright MD vasodilation 11:46:17 Nitroglycerin I.C. 500 mcg Berry Smart for IC/IA Adriana Wright MD vasodilation 11:47:39 Fentanyl I.V. 50 mcg Berry Smart for sedation Adriana Wright MD 11:56:24 Nitroglycerin I.C. 500 mcg Berry Smart for IC/IA Tauth MD Adriana bledsoe 12:14:05 Morphine I.V. 4 mg Berry Iniguez for chest pain Adriana Rosario RN Procedure Log Time Note 10:30:42 Rowena Fraire RT(R) sent for patient. Start room use. 10:44:16 Diagnostic Cath Status : Elective 10:44:48 Indication : Angina 10:45:42 Informed consent obtained and on chart 10:47:37 Lab Result : BUN 13 mg/dl ::37 Lab Result : Creatinine 1.1 mg/dl ::37 Lab Result : eGFR NONAFRICAN 72 ml/min ::37 Lab Result : Hemoglobin 15.9 g/dl 10:47:55 Time tracking: Regular hours (M-F 7:00 - 5:00) 10:48:00 Plan of Care:Hemodynamics will remain stable., Cardiac rhythm will remain stable., Comfort level will be maintained., Respiratory function will remain adequate., Patient/ family verbilizes understanding of procedure., Procedure tolerated without complication., Recovers from procedure without complications.. 10:48:05 Patient received from Pre/Post Procedure Room to [facility] 2 Alert and oriented. Tansferred to table in Supine position. 10:48:06 Warm blankets applied, and reginaldo hugger turned on for patient comfort. 10:48:06 Correct patient and procedure confirmed by team. 10:48:07 ECG and BP/O2 sat monitors applied to patient. 10:51:03 Admit Source: Other 10:51:05 Arrival Date: 08/29/2019 10:30:00 AM 10:51:16 Insurance Payor : Private health insurance 10:51:42 Patient Weight : 185.19 lbs 10:51:46 Patient Height : 70.87 inches 10:51:49 Vital chart was started 10:51:50 Baseline sample Acquired. 10:55:47 0.9% NaCl 100 ml/hr I.V. was administered by Geetha Rosario RN; used for procedure; Verbal order read back and verified. 10:55:53 Oxygen 2 l/min etCO2 Nasal cannula was administered by Geetha Rosario RN; used for procedure; Verbal order read back and verified. 10:55:58 Lidocaine 2% 20ml vial added to field was administered by Berry Wright MD; for local anesthetic; Verbal order read back and verified. 10:56:03 Heparin Flush Bag (1000units/500ml NS) 2 bags added to field was administered by Berry Wright MD; used for procedure; Verbal order read back and verified. 10:56:08 Radial Cocktail (Verapamil 2mg/Nitro 400mcg/Heparin 1500units) 1 syringe added to field was administered by Berry Wright MD; used for procedure; Verbal order read back and verified. 10:56:38 Rhythm: sinus rhythm 10:56:40 Baseline sample Acquired. 10:56:41 Full Disclosure recording started 10:56:50 H&P Date Dictated: 08/29/2019 H&P Addendum completed by physician on day of procedure. (MUST COMPLETE FOR ALL OUTPATIENTS), New H&P dictated by physician.. 10:57:13 Pre-procedure instructions explained to patient. 10:57:13 Pre-op teaching completed and patient verbalized understanding. 10:57:16 Family in patients room. 10:57:17 Patient NPO since Midnight. 10:57:18 Is the patient allergic to Iodine/contrast media? No. 10:57:20 Was the patient premedicated? No 10:57:21 Is patient on blood thinner?No 10:57:22 Patient diabetic? No. 10:57:28 Previous problem with sedation/anesthesia? No ? 10:57:30 Snore? No 10:57:31 Sleep apnea? No 10:57:32 Deviated septum? No 10:57:33 Opens mouth fully? Yes 10:57:34 Sticks out tongue? Yes 10:57:35 Airway obstruction? No ? 10:57:38 Dentures? No ? 10:57:42 Pre procedure: right dorsailis pedis pulse 2+ Normal; easily identifiable; not easily obliterated 10:57:44 Pre procedure: left dorsailis pedis pulse 2+ Normal; easily identifiable; not easily obliterated 10:57:47 Modified Compa's test Radial < 7 seconds 10:57:49 Patient pain scale 0/10 ?. 10:57:55 IV patent on arrival in left forearm with 0.9% NaCl at KVO. 10:57:57 Lab results completed and on chart. 10:58:24 Stress Test: yes; abnormal ? 10:58:33 Risk of Mortality: <0.1 10:58:38 Risk of blood transfusion: <0.1 10:58:43 Risk of KENIA: <0.1 10:58:46 Right Radial & Right Groin area was prepped with chlora-prep and draped in sterile fashion 10:58:47 Alarms reviewed by R. N. 10:58:47 Sharps counted by scrub and verified by R.N. 11:04:13 2) 60-89 Mildly reduced kidney function, and other findings (as for stage 1) point to kidney disease. 11:05:23 Maximum allowable contrast dose (3.7 X eGFR X 0.75)199.8 ml. 11:06:39 Physician paged 11:09:01 Zero performed for pressure channel P1 11:16:44 Physician arrived 11:16:44 --------ALL STOP TIME OUT------ 11:16:45 Final Timeout: patient, procedure, and site verified with staff and physician. All members of the team are in agreement. 11:16:49 Right Radial & Right Groin site verified by team. 11:16:53 Fire Safety Assessment: A--An alcohol-based skin anteseptic being used preoperatively., C--Open oxygen or nitrous oxide is being used., D--An ESU, laser, or fiber-optic light is being used. 11:16:56 Physical assessment completed. ASA score P 2 - A patient with mild systemic disease as per Berry Wright MD. 11:17:00 Sedation plan: IV Moderate Sedation Medication:Versed, Fentanyl 11:17:07 Use device set Radial Dx or PCI 11:17:10 ACIST Syringe (25269) opened to sterile field. 11:17:10 Medline Cath Pack ([id number]) opened to sterile field. 11:17:11 Bag Decanter () opened to sterile field. 11:17:11 ACIST Hand Control (12044) opened to sterile field. 11:17:12 ACIST Manifold (41371) opened to sterile field. 11:17:12 Tegaderm 4 x 4 (6406W) opened to sterile field. 11:17:13 MBrace Wrist Support ([id number]) opened to sterile field. 11:17:15 SHEATH 6FR RAIN (3648685) opened to sterile field. 11:17:16 EMERALD Guide Wire (265-627) opened to sterile field. 11:18:04 Versed 2 mg I.V. was administered by Geetha Rosario RN; for sedation; Verbal order read back and verified. 11:18:08 Fentanyl 50 mcg I.V. was administered by Geetha Rosario RN; for sedation; Verbal order read back and verified. 11:18:49 Procedure started. 11:18:53 Local anesthetic to right radial artery with Lidocaine 2% by Berry Wright MD.INITIAL ACCESS ONLY 11:19:41 A 6 Fr Short sheath was inserted into the Right Radial artery 11:20:00 A DIAGNOSTIC [place] 110cm 5 Fr catheter ([id number]) was advanced over the wire and used for Multi-vessel Angiography. 11:20:59 LV hemodynamics recorded. 11:21:00 LV gram done using NOBLE 11:21:03 Injector settings: Ml/sec: 5, Volume: 15, 11:21:11 EF : 55 % 11:21:33 LCA angiography performed. 11:21:36 Injector settings: Ml/sec: 3, Volume: 6, 11:22:56 GUIDE 6FR XBLAD 3.5 catheter ([id number]) opened to sterile field. 11:22:56 [place] Verrata Plus pressure wire (91026J) opened to sterile field. 11:22:57 INFLATOR Merit BasixCompak (YW4624) opened to sterile field. 11:23:08 RCA angiography performed. 11:23:11 Injector settings: Ml/sec: 3, Volume: 6, 11:23:19 ACCDominant side:Right 11:23:20 GUIDE 6FR AR 1.0 catheter ([id number]) opened to sterile field. 11:23:25 Catheter removed. 11:23:26 Proceeding to intervention. 11:24:37 6 Fr xblad 3.5 guide catheter was inserted over the wire 11:25:29 CHOICE PT Extra Support 182cm wire ([id number]) opened to sterile field. 11:25:42 Heparin Bolus 4000 units I.V. was administered by Geetha Rosario RN; for anticoagulation; Verbal order read back and verified. 11:25:52 Integrilin (Bolus 2mg/ml) 7.3 ml I.V. was administered by Geetha Rosario RN; for antiplatelet therapy; Verbal order read back and verified. 11:26:00 Plavix 600 mg P.O. was administered by Geetha Rosario RN; for antiplatelet therapy; Verbal order read back and verified. 11:26:21 Integrilin (Bolus 2mg/ml) 2.7 ml wasted was administered by Geetha Rosario RN; for antiplatelet therapy; Verbal order read back and verified. 11:29:43 [place] Verrata Plus pressure wire (81905J) opened to sterile field. 11:29:58 1[address] verrata wire damaged 11:30:18 FFR/IFR wire advanced. 11:30:21 Baseline FFR 1. 11:35:34 verreta wire not able to measure vessel; 11:35:42 [place] Verrata Plus pressure wire (10378B) opened to sterile field. 11:35:54 FFR/IFR wire advanced. 11:35:59 Baseline FFR 1. 11:36:08 mCirc lesion measured at 0.91 with IFR 11:36:33 Wire removed. 11:37:01 choice pt wire advanced. 11:37:08 ACC Pre-intervention ABRAHAN Flow is 3. 11:37:08 Pre PCI Site: [place] mLAD has 95% stenosis. 11:37:08 Wire advanced across lesion. 11:38:33 Place stent Inflation Number: 1 A LANDRY RX 3.0 x 38 stent ([id number]) was prepped and advanced across the Mid LAD 95. The stent was deployed at 13 JOSELYN for 0:10 (min:sec) 0. 11:39:50 Post PCI Site: [place] mLAD has 0% stenosis. 11:39:50 ACC Post-intervention ABRAHAN Flow is 3. 11:39:52 Wire redirected to diagonal. 11:40:14 Stent catheter was removed intact over wire. 11:41:23 Inflate balloon Inflation number: 1 A EUPHORA 2.0 x 15 Balloon ([id number]) was prepped and advanced across the 1st Diag , then inflated to 11 JOSELYN for 0:10 (min:sec) . 11:42:11 Balloon removed over the wire. 11:44:10 The EUPHORA 2.0 x 15 Balloon ([id number]) was advanced and then removed because in body, not inflated 11:45:30 Nitroglycerin IC/IA 500 mcg I.C. was administered by Berry Wright MD; for vasodilation; Verbal order read back and verified. 11:46:17 Nitroglycerin IC/IA 500 mcg I.C. was administered by Berry Wright MD; for vasodilation; Verbal order read back and verified. 11:47:16 Wire removed. 11:47:39 Fentanyl 50 mcg I.V. was administered by Berry Wright MD; for sedation; Verbal order read back and verified. 11:48:22 CHOICE PT Extra Support J 300cm guide wire ([id number]) opened to sterile field. 11:49:36 choicept 300 wire advanced. 11:49:39 Wire advanced across lesion. 11:56:24 Nitroglycerin IC/IA 500 mcg I.C. was administered by Berry Wright MD; for vasodilation; Verbal order read back and verified. 11:57:17 Inflate balloon Inflation number: 2 A EMERGE OTW 2.0 x 20 balloon ([id number]) was prepped and advanced across the 1st Diag , then inflated to 5 JOSELYN for 0:10 (min:sec) . 11:57:27 ACT drawn and resulted at 352 seconds. (normal therapeutic range 180-240 seconds). 11:57:31 Inflation number: 3 The EMERGE OTW 2.0 x 20 balloon ([id number]) was reinflated across the 1st Diag , to 5 JOSELYN for 0:10 (min:sec) . 11:57:47 Inflation number: 4 The EMERGE OTW 2.0 x 20 balloon ([id number]) was reinflated across the 1st Diag , to 7 JOSELYN for 0:10 (min:sec) . 11:58:08 Balloon removed over the wire. 12:00:04 Pre PCI Site: [place] Diag1 has 90% stenosis. 12:00:04 ACC Pre-intervention ABRAHAN Flow is 2. 12:00:05 Place stent Inflation Number: 5 A LANDRY RX 2.0 x 30 stent ([id number]) was prepped and advanced across the 1st Diag 90. The stent was deployed at 11 JOSELYN for 0:10 (min:sec) 0. 12:01:09 ACC Post-intervention ABRAHAN Flow is 3. 12:01:09 Post PCI Site: [place] Diag1 has 0% stenosis. 12:01:10 stent catheter removed over the wire. 12:01:11 Wire removed. 12:01:11 Guide catheter removed. 12:01:15 ZEPHYR REGULAR TR BAND (974541) opened to sterile field. 12:01:25 Sheath removed intact; hemostasis achieved with Mechanical Compression to the Right Radial artery. 12:01:27 Procedure ended.(Physican Out) 12:01:36 Fluoroscopy time 16.00 minutes. 12:01:41 Flurop Dose total: 1598 12:01:41 Fluoroscopy dose: 1598 mGy 12:01:46 Dose Area Product 44019 mGy/cm. 12:01:51 Contrast amount:Isovue 300 253ml. 12:01:54 Maximum allowable dose exceeded? Yes. 12:01:55 Sharps counted by scrub and verified by R.N. 12:01:58 [place] band inflated with 10cc of air. 12:01:59 Insertion/operative site no bleeding no hematoma. 12:02:11 Post right radial artery:stable 12:02:12 Post Procedure Pulses reassessed and unchanged 12:02:16 Post procedure rhythm: unchanged. 12:02:19 Estimated blood loss: 5 ml 12:02:20 Post procedure instruction explained to patient.Patient verbalizes understanding. 12:02:21 Patient needs reinforcement of post procedure teaching. 12:02:39 Procedure type changed to Cath procedure, Diagnostic procedure, C, [facility] w/Coronaries, FFR/IVUS, FFR Initial, Sedation Charges, Moderate Sedation up to 30 minutes, PCI procedure, Coronary Stent, Coronary Stent Initial, Coronary Stent Additional 12:02:41 Procedure and supply charges have been captured, reviewed, submitted and are correct. 12:02:45 Procedure Complication : No complications 12:02:48 Vital chart was stopped 12:02:50 [facility] Findings: MVD- PCI performed (see procedure note) 12:02:54 Operative report dictated upon procedure completion. 12:02:55 See physician's report for complete and final results. 12:02:57 Report given to Pre/Post Procedure Room. 12:02:59 Patient transfered to Pre/Post Procedure Room with Stretcher. 12:11:09 Procedure ended. 12:11:09 Full Disclosure recording stopped 12:11:18 ACC-PCI Only Patient was given prescriptions, or instructed by Berry Wright MD to start/continue the following medications upon discharge: Plavix 12:11:19 End room use (Document Last) 12:14:05 Morphine 4 mg I.V. was administered by Geetha Rosario RN; for chest pain; Verbal order read back and verified. Intervention Summary Intervention Notes Time ActionType Lesion and Equipment Used Action# Pressure Duration Attributes 11:38:33 Place stent Mid LAD LANDRY RX 3.0 x 1 13 00:10 38 stent ([id number]) 11:41:23 Inflate 1st Diag EUPHORA 2.0 x 1 11 00:10 balloon 15 Balloon ([id number]) 11:44:10 Discard EUPHORA 2.0 x Balloon 15 Balloon ([id number]) 11:57:17 Inflate 1st Diag EMERGE OTW 2.0 2 5 00:10 balloon x 20 balloon ([id number]) 11:57:31 Reinflate 1st Diag EMERGE OTW 2.0 3 5 00:10 balloon x 20 balloon ([id number]) 11:57:47 Reinflate 1st Diag EMERGE OTW 2.0 4 7 00:10 balloon x 20 balloon ([id number]) 12:00:05 Place stent 1st Diag LANDRY RX 2.0 x 5 11 00:10 30 stent ([id number]) Device Usage Item Name Manufacture Quantity Catalog Number [facility] Lot# / Charge Number Stock Stock Serial# Code ACIST Syringe Acist 1 61163 415515 353707 850040 20 (27269) Medical Systems Inc Medline Cath Medline 1 [id number] 612396 24769 413858 5 Pack ([id number]) Bag Decanter Microtek 1 492992 80949 799762 5 (2001S) Medical Inc. ACIST Hand Acist 1 34979 976067 242885 058772 5 Control Medical (27162) Systems Inc ACIST Manifold Acist 1 21645 097715 613031 381073 5 (55678) Medical Systems Inc Tegaderm 4 x 4 3M 1 1626W 097883 905681 423862 5 (1626W) MBrace Wrist Advanced 1 140-0250-00 199384 07955 445180 5 Support Vascular ([id number]) Dynamics SHEATH 6FR Cardinal 1 [id number] 297866 0496030 430735 5 RAIN (7534548) Health EMERALD Guide Cardinal 1 502-197 672585 266730 167763 5 Wire (482-309) Health DIAGNOSTIC Terumo 1 96-1157 915573 063737 704278 5 [place] 110cm 5 Fr catheter (008008) GUIDE 6FR Cardinal 1 80407984 848524 595595 252490 10 XBLAD 3.5 Health catheter (42910224) [place] 3 34224F 703932 811459758 249081 5 Verrata Plus pressure wire (55420V) INFLATOR Merit Merit 1 HJ8901 214304 113970 802786 15 [employer] Medical (YV6689) GUIDE 6FR AR Medtronic 1 [id number] 195831 45670 882922 1 1.0 catheter (VR5FK51) CHOICE PT Dwarf 1 [id number] 789037 996663 113456 5 Extra Support Scientific 182cm wire ([id number]) LANDRY RX 3.0 x Medtronic 1 [id number] 630690 1692786 877157 5 [id number] 38 stent ([id number]) EUPHORA 2.0 x Medtronic 1 [id number] 463839 303647 900623 5 [id number] 15 Balloon ([id number]) CHOICE PT Dwarf 1 [id number] 800937 191897 002912 5 Extra Support Scientific J 300cm guide wire ([id number]) EMERGE OTW 2.0 Dwarf 1 [id number] 408738 305622 084194 5 [id number] x 20 balloon Scientific ([id number]) LANDRY RX 2.0 x Medtronic 1 [id number] 626607 7225256 239493 5 [id number] 30 stent ([id number]) ZEPHYR REGULAR Cardinal 1 016301 436783 7103449 582067 5 [facility] I[employer] Services (088457) Signature Audit [place] Stage Time Signature Unsigned Intra-Procedure 08/29/2019 Almita Gtz RT(R) 12:11:54 PM Intra-Procedure 08/29/2019 Geetha Rosario RN 12:12:22 PM Intra-Procedure 08/29/2019 Berry Wright MD 12:14:55 PM Signatures Performing Physician : Berry Signature : Adriana WRIGHT Date : Time : Monitor : Almita Ulisses RT Signature : Date : Time : Nurse : Geetha Abraham RN Signature : Date : Time : [address] [place] [address]
[2019-08-29] MEDS ORDERED: DICLOFENAC SODI50 MG PO (09:21)
[2019-08-29] MEDS ORDERED: VALTREX500 MG PO (09:21)
[2019-08-29] MEDS ORDERED: PEPCID AC20 MG PO (09:21)
[2019-08-29] MEDS ORDERED: MELATONIN10 M1 PO (09:21)
[2019-08-29 09:42] LABS: BASOPHILS 1.4 % (0-2); EOSINOPHILS 8.2 % (0-7); HEMATOCRIT 47.7 % (42.0-54.0); HEMOGLOBIN 15.9 g/dL (13.5-17.5); IMMATURE GRANULOCYTES 0.4 % (0-5); LYMPHOCYTES 46.3 % (15-50); MCH 28.4 pg (26.0-34.0); MCHC 33.3 g/dL (31.0-37.0); MCV 85.3 fL (80.0-100.0); MEAN PLATELET VOLUME 9.9 fL (7.4-10.4); MONOCYTES 19.9 % (2-11); NEUTROPHILS 23.8 % (40-80); RBC 5.59 10x6/uL (4.20-6.10); RDW 14.1 % (11.5-14.5); WBC 2.8 10x3/uL (4.8-10.8)
[2019-08-29 09:43] LABS: PLATELET COUNT 183 10x3/uL (130-400)
[2019-08-29 09:59] LABS: ANION GAP 10.9 mmol/L (8-16); CALCIUM 8.6 mg/dL (8.5-10.1); CHOL - HDL RATIO 4.9 ratio (2.3-4.9); CREATININE - SERUM 1.1 mg/dL (0.6-1.3); LDL-HDL RATIO 3.3 ratio (1.5-3.5); POTASSIUM - SERUM 3.9 mmol/L (3.5-5.1)
--- NOTE | 2019-08-29 12:20 | NUR ---
PT RECEIVED VIA STRETCHER FROM CREDIT VERIFIER POST ANGIONGRAM. PT DROWSY BUT AWAKE, PT HAS BEEN COMPLAINING OF CHEST DISCOMFORT SINCE BACK IN CREDIT VERIFIER. PT RECEIVED 4MG MORPHINE BEFORE HIS ARRIVAL. PT PLACED ON CARDIAC MONITORS AND O2 AT 2L/NC. HR NSR RATE 59, BP 107/65, RR 11, SAT 97. ZYPHER BAND AND IMMOBILIZER IN PLACE, DRESSING CDI NO BLEEDING OR HEMATOMA NOTED. ARM PINK AND WARM, CAP REFILL BRISK. DR PAZ SPOKE WITH REGARDING PLAN OF CARE AND PROCEDURE RESULTS. CALL LIGHT IN REACH, PT DENIES NEEDS
[2019-08-29] MEDS ORDERED: PLAVIX75 MG PO (12:26)
[2019-08-29] MEDS ORDERED: PRAVACHOL40 MG PO (12:26)
--- NOTE | 2019-08-29 12:45 | NUR ---
PT STATES PAIN IS A LITTLE WORSE AND HE IS FEELING SOB SOMETIMES. BP 106/65, HR 51, SAT 99. Z BAND AND IMMOBILIZER IN PLACE, DRESSING CDI NO BLEEDING OR HEMATOMA NOTED. ARM PINK AND WARM, CAP REFILL BRISK. CALL LIGHT IN REACH. WILL NOTIFY DR PAZ OF INCRESASED PAIN. AT BEDSIDE, CALL LIGHT IN REACH
--- NOTE | 2019-08-29 13:00 | NUR ---
Z BAND AND IMMOBILIZER IN PLACE, DRESSING CDI NO BLEEDING NOTED. PT STATES PAIN IS 8/10 NOW. ORDERS RECEIVED FOR ADMIT TO CV, EKG DONE.
--- NOTE | 2019-08-29 13:07 | NUR ---
EPTIFIBATIDE 75MG PER PUMP, RIB BUILDER CALLED FOR CV BED.
--- NOTE | 2019-08-29 13:27 | NUR ---
PT WILL BE MOVED TO FOR OBSERVATION. PT C/O HEARTBURN, SIPS OF WATER GIVEN. INSTRUCTED PT AND THAT HE COULD TAKE HIS HOME MEDICATION OF PEPSID. Z BAND IN PLACE, DRESSING CDI NO BLEEDING OR HEMATOMA NOTED. ARM PINK AND WARM, CAP REFILL BRISK. CALL LIGHT IN REACH
--- NOTE | 2019-08-29 13:50 | NUR ---
REPORT GIVEN TO Joe OCHOA RN CVICU. PT TRANSPORTED VIA STRETCHER.
--- NOTE | 2019-08-29 14:15 | NUR ---
REC'D VIA STRETCHER FROM CUSTOMS VERIFIER, AAO, CONNECTED TO ICU MONITORS, VSS, C/O PAIN AND BURNING IN CHEST, 01/08, MEDS PREVIOUSLY GIVEN IN CUSTOMS VERIFIER, ACCLAMATED TO ICU, AT BEDSIDE, CALL LIGHT IN REACH, VOICES NO NEEDS A THIS, INDEPENDENT WITH REPOSITIONING
--- NOTE | 2019-08-29 16:00 | NUR ---
OOB TO BATHROOM WITH STANBY ASSIST, TOLERATED WITHOUT DIFFICULTY,
--- NOTE | 2019-08-29 16:40 | NUR ---
DINNER TRAY TO BEDSIDE, INDEPENDENT WITH SET UP AND EATING
--- NOTE | 2019-08-29 17:00 | NUR ---
DR PAZ AT BEDSIDE, NEW ORDER GIVEN FOR DEMORAL 50
--- NOTE | 2019-08-29 17:55 | NUR ---
CALLED TO ROOM, HAVING CHEST PAIN AGAIN, 05/10, DEMEROL 50 MG GIVEN PER PRN ORDER
--- NOTE | 2019-08-29 19:00 | NUR ---
PT AOX4, VSS, C/O CHEST PAIN 5/10, REPOSITIONED FOR COMFORT. PT STATES PAIN IS A LITTLE BETTER THAN IT HAD BEEN, STATES HE THINKS IT MAY TREND DOWN. PAIN MANAGEMENT TEACHING COMPLETED AT THIS TIME. S1S2 HEARD, PERIPHERAL PULSES PRESENT. RT WRIST WITH SMALL INCISION, NO HEMATOMA, EXTREMITIY PINK AND WARM. BOWEL SOUNDS ACTIVE IN ALL QUADRANTS. DENIES NAUSEA. REPOSITIONS SELF INDEPENDENTLY. FRESH WATER PROVIDED. DENIES FURTHER NEEDS AT THIS TIME. CALL LIGHT WITHIN PT REACH, CPOC.
--- NOTE | 2019-08-29 21:30 | NUR ---
PAGED JACKSON REGARDING PT CONTINUED CHEST PAIN
--- NOTE | 2019-08-29 21:35 | NUR ---
REC'D CALLBACK FROM PARAS PAZ ORDERS REC'D, SEE MAR.
--- NOTE | 2019-08-29 23:00 | NUR ---
REASSESSMENT COMPLETE, SEE FLOWSHEET FOR ALL CHANGES. PT STATES PAIN IS "MUCH BETTER" AFTER ORDERED PRN DILAUDID AND STATES HE IS COMFORTABLE. VSS. PT REPOSITIONS SELF INDEPENDENTLY. DENIES FURTHER NEEDS AT THIS TIME. CALL LIGHT AND BEDSIDE TABLE WITHIN PT REACH. CPOC.
[2019-08-30] VITALS (8 sets, daily range): BP systolic 130–147; BP diastolic 61–88
[2019-08-30 06:47] LABS: BASOPHILS 0.5 % (0-2); EOSINOPHILS 4.7 % (0-7); HEMATOCRIT 42.5 % (42.0-54.0); HEMOGLOBIN 14.2 g/dL (13.5-17.5); IMMATURE GRANULOCYTES 0.3 % (0-5); LYMPHOCYTES 35.7 % (15-50); MCH 28.6 pg (26.0-34.0); MCHC 33.4 g/dL (31.0-37.0); MCV 85.5 fL (80.0-100.0); MEAN PLATELET VOLUME 10.3 fL (7.4-10.4); MONOCYTES 15.1 % (2-11); NEUTROPHILS 43.7 % (40-80); PLATELET COUNT 152 10x3/uL (130-400); RBC 4.97 10x6/uL (4.20-6.10); RDW 14.1 % (11.5-14.5)
--- NOTE | 2019-08-30 07:00 | NUR ---
REPORT RECEIVED AND CARE RESUMED, LYING IN BED WITH NO ACUTE SIGN OF DISTRESS, VSS, C/O OF BACK PAIN FROM SLEEPING IN THE BED, ASSESSMENT COMPLETED, NO OTHER NEEDS AT THIS TIME
[2019-08-30 07:04] LABS: WBC 3.8 10x3/uL (4.8-10.8)
--- NOTE | 2019-08-30 07:30 | NUR ---
BREAKFAST TO ROOM, OOB TO CHAIR WITH MINIMAL ASSIST, INDEPENDENT WITH SET UP AND EATING
--- NOTE | 2019-08-30 09:34 | NUR ---
MORNING MEDS GIVEN PER DEC FLOWSHEET
--- NOTE | 2019-08-30 09:45 | OP ---
PATIENT NAME: NATALIE SCHAFER JR MEDICAL RECORD: [id number] :59 LOCATION:[facility] ADMISSION DATE:08/29/19 SURGEON: DIETER PAZ MD DATE OF OPERATION: 08/29/2019 PROCEDURES: 1. PTCA stent LAD and LAD diagonal. 2. IFR. 3. Left heart catheterization. 4. Selective coronary angiography. 5. Left ventriculogram. INDICATION: Angina and coronary artery disease. PROCEDURE PERFORMED: After informed consent was obtained and after a detailed description of risks, benefits as well as alternative therapies, the patient elected to proceed with angiogram and angioplasty. The right radial area was prepped and draped in normal sterile fashion. Right radial artery was cannulated via modified Seldinger technique with placement of 6-Sami sheath. All catheters exchanged through this sheath. FINDINGS: Left ventriculogram was performed in standard 30-degree NOBLE view, reveals good cardiac wall motion throughout all segments. Overall ejection fraction estimated 60%. SELECTIVE CORONARY ANGIOGRAPHY: 1. Left main is with no significant angiographic disease. 2. Left anterior descending has 95% stenosis in the proximal vessel. The LAD diagonal was as well 90% to 95% stenosed. 3. The left circumflex has a questionable stenosis in the proximal vessel; however, IFR was normal. 4. Right coronary artery has moderate irregularities up to 50% stenosis, but there does not appear to be any flow limiting stenosis. PTCA STENT OF THE LAD AND LAD DIAGONAL: The LAD was addressed with a 3.0 x 38 mm Pasquale and the diagonal with a 2.0 x 30 mm [place]. Result was 0% residual. IMPRESSION: Successful PTCA stent of the LAD and LAD diagonal, both going from 90% to 95% initial stenosis to 0% residual. TRANSINT:[id number] Voice Confirmation ID: [id number] DOCUMENT ID: [id number] DIETER PAZ MD at 0945 CC: [id number] DICTATION DATE: 08/29/19 1206 ORTHOPEDIC PHYSICIAN: 08/29/19 1218 ADM IN [facility] [address] [place] [address]
--- NOTE | 2019-08-30 09:45 | HP ---
PATIENT: NATALIE SCHAFER JR MEDICAL RECORD: [id number] ACCOUNT: [id number] LOCATION:[facility] D.CV02 : 59 ADMISSION DATE: 08/29/19 PCP: MAYANK CARTAGENA MD HISTORY AND PHYSICAL EXAMINATION DIAGNOSES: 1. Angina. 2. Abnormal nuclear stress test. HISTORY OF PRESENT ILLNESS: This is a gentleman with no past cardiac history, who has been having episodes of chest pain, chest discomfort compatible with angina. Risk stratification with nuclear stress testing revealed abnormal perfusion defect. He is now brought for cardiac catheterization. He continues to have episodes of angina. REVIEW OF SYSTEMS: The patient reports easy bruising but reports no swollen glands. The patient reports no fever, no night sweats, no significant weight gain, no significant weight loss. No significant exercise tolerance. The patient reports no dry eyes, no irritation, no vision change. Patient reports no difficulty hearing and no ear pain. Patient reports no frequent nose bleeds or nose and sinus problems. Patient reports on arm pain on exertion. No shortness of breath while lying down. No history of heart murmur. Patient reports no cough, no wheezing or coughing up blood. Patient reports no abdominal pain, no vomiting. Normal appetite. No diarrhea and not vomiting blood. No nausea and no constipation. Patient reports no incontinence. No difficulty urinating. No hematuria. No increased frequency. Patient reports no muscle aches. No weakness, no arthralgias, no back pain. No swelling of the extremities. Patient reports no abnormal mole, no jaundice, no rashes. Reports no loss of consciousness. No weakness and no numbness. No seizures, dizziness, or headaches. The patient reports no depression, no sleep disturbance, feeling safe in a relationship and no alcohol abuse. Patient reports on fatigue. Reports no runny nose or sinus pressure. No itching, no hives, and no frequent sneezing. SOCIAL HISTORY: Lives and works in the [place] area. Denies smoking or ETOH. FAMILY HISTORY: Positive for coronary artery disease and hypertension. PHYSICAL EXAMINATION: CONSTITUTIONAL/GENERAL APPEARANCE: Well nourished, well developed, appears stated age. EYES: Lids and conjunctivae noninjected. No discharge. No pallor. ENT: Lips within normal limit. No cyanosis. No pallor. NECK: Carotid arteries, bilateral normal upstroke. No bruits. No thrills. No jugular venous pressure or distention. CERVICAL LYMPH NODES: Nontender. Nonenlarged. THYROID: Not enlarged. No nodules. CARDIOVASCULAR: Precordial exam, nondisplaced. No heaves or pericardial thrills. Rate and rhythm, regular. Heart sounds, normal S1, normal S2. No S3, no gallop, no rub. Systolic murmur, not heard. Diastolic murmur, not heard. RESPIRATORY: Respiratory effort, unlabored. Normal curvature. No thoracic deformity. No chest wall tenderness. Percussion, resonant. Auscultation, clear. No wheezes, no rales, no rhonchi. ABDOMEN: Soft, nondistended, nontender. No abdominal pain, no vomiting and normal appetite. HISTORY AND PHYSICAL [id number] NATALIE SCHAFER JR MUSCULOSKELETAL: No joint tenderness, normal gait, normal tone. SKIN: Warm and dry. OVERALL IMPRESSION: Continued anginal chest discomfort with abnormal nuclear stress test. We will proceed with coronary angiography. Further care depends upon the findings of the angiography. TRANSINT:[id number] Voice Confirmation ID: [id number] DOCUMENT ID: [id number] DIETER PAZ MD at 0945 CC: [id number] DICTATION DATE: 08/29/19 1212 COLORED LEATHER SETTER: 08/29/19 1221 ADM IN [place] [id number] [place] [id number]
--- NOTE | 2019-08-30 18:19 | MORECARE ---
CASE MANAGEMENT DISCHARGE SUMMARY PATIENT: NATALIE SCHAFER JR UNIT: [id number] ADM DATE: 08/29/19 AGE: 64 : 59 SEX: M ROOM/BED: [facility] AUTHOR: MARIA ALEJANDRA FLETCHER PHYSICIAN: REFERRING PHYSICIAN: DIETER PAZ MD DATE OF SERVICE: 08/30/19 Discharge Plan Patient Name: NATALIE SCHAFER [facility] : 1955 Planned Disposition: Anticipated Discharge Date: Discharge Date: 08/30/2019 Expected LOS: Initial Reviewer: [email or web address] Initial Review Date: 08/29/2019 Generated: 08/30/19 7:18 pm Patient Name: NATALIE SCHAFER Page [id number] at 1819 All edits/amendments must be made on the electronic document DICTATION DATE: 08/30/191817 MEDIA SUPERVISOR: DERICK 08/30/191817 RPT#: [id number] DC DATE:08/30/19 STATUS: DIS IN [facility] [address] [place] [address] END OF REPORT
--- NOTE | 2019-09-06 14:07 | DS ---
PATIENT:NATALIE SCHAFER JR :59 MEDICAL RECORD: [id number] DISCHARGE SUMMARY ADMISSION DATE: 08/29/19 DISCHARGE DATE: 08/30/19 DATE OF SERVICE: 08/30/2019 DISCHARGE DIAGNOSES: 1. Angina. 2. Coronary artery disease. 3. Percutaneous transluminal coronary angioplasty and stent to the left anterior descending and left anterior descending diagonal this admission. HOSPITAL COURSE: Mr. Schafer presents with anginal symptomatology, found to have critical disease of the LAD and LAD diagonal and underwent successful PTCA and stent of both territories, was discharged home with the addition of Plavix, Pravachol, aspirin to his medical regimen. Will follow up with [facility] in 1 month. TRANSINT:[id number] Voice Confirmation ID: [id number] DOCUMENT ID: [id number] DIETER PAZ MD at 1407 CC: [id number] DICTATION DATE: 08/30/19 1010 NOTCHED BLADE LOADER: 08/31/19 0240 DIS IN 08/30/19 [facility] [address] [place] [id number]
--- NOTE | 2019-09-06 14:07 | EC ---
PATIENT:NATALIE SCHAFER JR DATE OF SERVICE: 08/29/19 SEX: M MEDICAL RECORD: [id number] DATE OF : 59 LOCATION:[place] [address] AGE OF PATIENT: 64 ADMISSION DATE: 08/29/19 REFERRING PHYSICIAN: INTERPRETING PHYSICIAN: DIETER WRIGHT MD ECHOCARDIOGRAM REPORT ECHO CHARGES 4 ECHO COMPLETE Date: 08/29/19 CLINICAL DIAGNOSIS: ANGINA ECHOCARDIOGRAPHIC MEASUREMENTS (adult normal given) AC root (d.<3.7cm) 3.4 cm LV Septum d (<1.2 cm> 0.9 cm Valve Excursion 1.8 cm LV Septum (systole) 1.0 cm Left Atria (s.<4.0cm> 3.4 cm LVPW d(<1.2cm) 0.8 cm RV (d.<2.3cm) 3.4 cm LVPW (sytole) 1.0 cm LV diastole(<5.6CM) 5.7 cm MV E-F(>70mm/sec) cm LV systole 4.6 cm LVOT Diameter 2.2 cm MV exc.(>10mm) cm Est.ejection fraction (50-75%) % DOPPLER: LVIT cm/sec A 59 cm/sec E 62 cm/sec LA cm/sec RVSP 20.6 mmHg LVOT 78 cm/sec AOP1/2T m/s Asc. Ao 108 cm/sec RVOT 53 cm/sec RA cm/sec PA 62 cm/sec AV Gradient Peak 4.6 mmHg AV Mean 2.3 mmHg AV Area 2.5 cm MV Gradient Peak 2.3 mmHg MV Mean 1.1 mmHg MV Area cm COMMENTS: Jail Keeper: Rome[facility] University Demonstrator: 1 Dr. Wright TAPE# PACS Pericardial Effusion N DATE OF SERVICE: FINDINGS: 1. Left ventricular chamber size is within normal limits. Left ventricular systolic function is normal. Overall ejection fraction estimated at 60% to 65%. 2. Left atrium, right atrium, and right ventricular chamber sizes are within normal limits. 3. Valvular structures have normal structure and motion. 4. Doppler interrogation reveals mild tricuspid regurgitation, no other valvular insufficiency or stenosis. ECHOCARDIOGRAM REPORT [id number] NATALIE SCHAFER JR 5. No evidence of pericardial effusion or left ventricular thrombus. TRANSINT:[id number] Voice Confirmation ID: [id number] DOCUMENT ID: [id number] DIETER WRIGHT MD at 1407 CC: [id number] DICTATION DATE: 08/30/191108 TURNING MACHINE OPERATOR: 08/30/19 1134 DIS IN 08/30/19 [facility] [address] [place] [id number]
== END 2019-08-30 11:30 | disposition home or self-care (01) | DRG 247 ==
LOC: D.CATH 08:54 → D.CVICU 14:00 → D.CATH 17:32 → D.CVICU 17:33
PROVIDERS: ADMIT Internal Medicine Interventional Cardiology; ATTEND Internal Medicine Interventional Cardiology
PROC: B2151ZZ Fluoroscopy of Left Heart using Low Osmolar Contrast (ICD-10-PCS; 2019-08-29)
PROC: 4A023N7 Measurement of Cardiac Sampling and Pressure, Left Heart, Percutaneous Approach (ICD-10-PCS; 2019-08-29)
PROC: 027135Z Dilation of Coronary Artery, Two Arteries with Two Drug-eluting Intraluminal Devices, Percutaneous Approach (ICD-10-PCS; principal; 2019-08-29 10:30)
PROC: B2111ZZ Fluoroscopy of Multiple Coronary Arteries using Low Osmolar Contrast (ICD-10-PCS; 2019-08-29 10:30)
DX: I25.119 Atherosclerotic heart disease of native coronary artery with unspecified angina pectoris (principal)

== ENCOUNTER → 2020-01-10 17:56 | Outpatient (CLI) | payer OTHER ==
[2019-08-29 14:40] VITALS: BMI 25.7
[~2020-01-10 17:56] MED LIST changes: +DICLOFENAC SODI50 MG PO; +MELATONIN10 M1 PO; +PEPCID AC20 MG PO; +PLAVIX75 MG PO; +PRAVACHOL40 MG PO; +VALTREX500 MG PO
[2020-01-10 18:51] LABS: CHOL - HDL RATIO 3.4 ratio (2.3-4.9)
== END | disposition home or self-care (01) ==
LOC: D.LABREF 17:56
PROVIDERS: ATTEND Internal Medicine Interventional Cardiology
DX: E78.5 Hyperlipidemia, unspecified (principal)

== ENCOUNTER → 2020-02-28 08:44 | Outpatient (CLI) | payer OTHER ==
[2019-08-29 14:40] VITALS: BMI 25.7
== END | disposition home or self-care (01) ==
LOC: D.HCCARDIO 08:44
PROVIDERS: ATTEND Internal Medicine Cardiovascular Disease
DX: I20.9 Angina pectoris, unspecified (principal)

== ENCOUNTER 2020-03-13 11:29 | Outpatient (CLI) | payer OTHER ==
[~2020-03-13] VITALS: Ht 180.3 cm; Wt 81.8 kg
--- NOTE | ~2020-03-13 | HEMODYNAMI ---
PATIENT:NATALIE SCHAFER JR MEDICAL RECORD: [id number] : 59 LOCATION:D.CAT ADMISSION DATE: 03/13/20 Generatedon:03/13/202015:20 Patient name: NATALIE SCHAFER Patient #: [id number] : 1955 Date of study: 03/13/2020 Page: Of Hemodynamic Procedure Report Patient Data Patient Demographics Procedure consent was obtained First Name: NATALIE Gender: Male Last Name: HANH Suffix: [facility] Initial: Mechelle : 1955 Patient #: [id number] Age: 64 year(s) Race: SSN: [id number] Additional ID: [id number] Contact details Address: [address] [address] State: [place] City: [place] Zip code: [address] Past Medical History Performed procedures and imaging results Date Procedure Procedure Results Comments 02/28/2020 Stress testing Positive->Intermediate with SPECT MPI risk Allergies Allergen Reaction Date Comments Reported Other allergy 03/13/2020 ELADIO BRIONES Admission Admission Data Admission Date: 03/13/2020 Admission Time: 11:29 Arrival Date: 03/13/2020 Arrival Time: 0:00 Admit Source: Other Insurance Payor: Private health insurance [facility] #: [id number] Height (in.): 71 BSA: 2.02 (m2) Height (cm.): 180.34 BMI: 25.15 (kg/m2) Weight (lbs.): 180.36 Weight (kg.): 81.81 Lab Results Lab Result Date: 03/13/2020 Lab Result Time: 0:00 Biochemistry Name Units Result Min Max BUN mg/dl 13 --(--*-)-- 7 18 Creatinine mg/dl 1 --(--*-)-- 0.6 1.3 eGFR ml/min 79.09192 *-(----)-- 90 120 NONAFRICAN CBC Name Units Result Min Max Hematocrit % 46.2 --(-*--)-- 42 54 Hemoglobin g/dl 14.8 --(-*--)-- 13.5 17.5 Procedure Procedure Types Cath Procedure Diagnostic Procedure [facility] w/Coronaries FFR/IVUS FFR Initial FFR Additional Sedation Charges Moderate Sedation up to 45 minutes Procedure Description Procedure Date Procedure Date: 03/13/2020 Procedure Start Time: 14:42 Procedure End Time: 15:18 Procedure Staff Name Function Kyle Larua MD Performing Physician Leni Rico RT Monitor Almita Gtz RT Scrub Neal Valencia RN Nurse Dasia Nascimento RT Ic Designer Standard Cells Indication Dyspnea Procedure Data Cath Procedure Fluoroscopy Diagnostic fluoroscopy Total fluoroscopy Time: 8.2 time: 8.2 min min Diagnostic fluoroscopy Total fluoroscopy dose: 565 dose: 565 mGy mGy Contrast Material Contrast Material Type Amount (ml) Isovue 370 76 Entry Location Entry Primary Successful Side Size Upsize Upsize Entry Closure Zamudio ccessful Closure Location (Fr) 1 (Fr) 2 (Fr) Remarks Device Remarks Radial Right 6 Fr Mechanical artery Short Compression Estimated blood loss: 10 ml Diagnostic catheters Device Type Used For End Catheter Placement DIAGNOSTIC Julius 110cm Procedure 5Fr catheter ([id number]) Procedure Complications No complications Procedure Medications Medication Administration Route Dosage Oxygen etCO2 Nasal cannula 2 l/min Lidocaine 2% added to field 20 Heparin Flush Bag added to field 2 bags (1000units/500ml NS) 0.9% NaCl I.V. 100 ml/hr Radial Cocktail I.A. 1 syringe (Verapamil 2mg/Nitro 400mcg/Heparin 1500units) Versed I.V. 2 mg Fentanyl I.V. 100 mcg Versed I.V. 1 mg Fentanyl I.V. 50 mcg Heparin Bolus I.V. 2000 units Versed I.V. 1 mg Fentanyl I.V. 50 mcg Versed I.V. 1 mg Hemodynamics Rest BSA: 2.02 (m2) HGB: 14.8 (g/dl) O2 Consumption: Estimated: 237.53 (ml/min) O2 Co nsumption indexed: Estimated:117.59 (ml/min/m) Heart Rate: 71 (bpm) Pressure Samples Time Site Value (mmHg) Purpose Heart Use Rate(bpm) 14:45 LV 109/27,17 Snapshot 108 Gradients Valve Time Site Site Mean SEP/DFP Peak To Heart Use 1 2 (mmHg) (sec/min) Peak Rate (mmHg) (bpm) Aortic 14:46 LV AO 93 Snapshots Pre Cath Intra NCS Post Cath Vital Signs Time Heart Resp SPO2 etCO2 NIBP (mmHg) Rhythm Pain Sedation Rate (ipm) (%) (mmHg) Status Level (bpm) 14:29:24 71 17 99 0 143/89(104) NSR 0 (11) 10(A) , No pain 14:33:38 69 17 100 21.7 141/87(103) NSR 0 (11) 10(A) , No pain 14:37:52 72 15 98 23.2 138/85(103) NSR 0 (11) 10(A) , No pain 14:42:06 73 15 98 38.9 132/80(115) NSR 0 (11) 9(A) , No pain 14:46:22 77 16 99 33.7 97/68(88) NSR 0 (11) 9(A) , No pain 14:50:24 72 15 96 35.2 111/70(88) NSR 0 (11) 9(A) , No pain 14:54:28 78 16 97 38.9 132/83(94) NSR 0 (11) 9(A) , No pain 14:58:42 69 15 98 37.4 131/77(95) NSR 0 (11) 9(A) , No pain 15:02:55 68 15 98 37.4 124/75(94) NSR 0 (11) 9(A) , No pain 15:07:03 65 15 99 38.1 122/81(101) NSR 0 (11) 9(A) , No pain 15:11:09 62 14 99 39.6 121/86(99) NSR 0 (11) 9(A) , No pain 15:15:19 71 16 98 35.2 124/76(105) NSR 0 (11) 10(A) , No pain Medications Time Medication Route Dose Verified Delivered Reason Not es Effectiveness by by 14:28:38 Oxygen etCO2 2 l/min Kyle Buffie used for Nasal Valentín Valencia tobacco baler cannula 14:28:45 Lidocaine 2% added 20ml Kyle Kyle for local to vial Valentín Laura MD anesthetic field 14:28:50 Heparin Flush added 2 bags Kyle Kyle used for Bag to Valentín Laura MD procedure (1000units/500ml field NS) 14:28:59 0.9% NaCl I.V. 100 Kyle Buffie Per physician ml/hr Valentín Valencia RN 14:29:07 Radial Cocktail I.A. 1 Kyle Kyle for (Verapamil syringe Valentín Laura MD vasodilation 2mg/Nitro 400mcg/Heparin 1500units) 14:34:41 Versed I.V. 2 mg Kyle Buffie for sedation Valentín Valencia RN 14:34:48 Fentanyl I.V. 100 mcg Kyle Buffie for sedation Valentín Valencia RN 14:40:38 Versed I.V. 1 mg Kyle Buffie for sedation Valentín Valencia RN 14:40:42 Fentanyl I.V. 50 mcg Kyle Buffie for sedation Valentín Valencia RN 14:46:20 Versed I.V. 1 mg Kyle Buffie for sedation Valentín Valencia RN 14:46:25 Fentanyl I.V. 50 mcg Kyle Buffie for sedation Valentín Valencia RN 14:59:37 Heparin Bolus I.V. 2000 Kyle Buffie for sherine ified units Valentín Valencia RN anticoagulation with dr laura 15:06:50 Versed I.V. 1 mg Kyle Buffie for sedation Valentín Valencia RN Procedure Log Time Note 14:14:21 Informed consent obtained and on chart 14:16:08 Lab Result : Hemoglobin 14.8 g/dl 14:16:08 Lab Result : eGFR NONAFRICAN 79.22196 ml/min 14:16:08 Lab Result : BUN 13 mg/dl 14:16:08 Lab Result : Creatinine 1 mg/dl 14:16:08 Lab Result : Hematocrit 46.2 % 14:16:28 Diagnostic Cath Status : Elective 14:16:51 Indication : Dyspnea 14:16:56 Arrival Date: 03/13/2020 12:00:00 AM 14:16:57 Admit Source: Other 14:17:00 Patient Height : 71 inches 14:17:05 Patient Weight : 180.36 lbs 14:17:10 Insurance Payor : Private health insurance 14:17:45 Patient allergic to Other allergyCODEINE, PCN 14:18:15 ACC Patient presents with Stable Angina CCS Anginal Class 2--Slight limitation of ordinary activity. 14:18:19 Procedure Status Elective Heart Cath (OP). 14:18:20 Dasia Nascimento RT(R) (CV) sent for patient. Start room use. 14:18:22 Time tracking: Regular hours (M-F 7:00 - 5:00) 14:18:27 Plan of Care:Hemodynamics will remain stable., Cardiac rhythm will remain stable., Comfort level will be maintained., Respiratory function will remain adequate., Patient/ family verbilizes understanding of procedure., Procedure tolerated without complication., Recovers from procedure without complications.. 14:18:36 H&P Date Dictated: 02/21/2020 Within 30 days and on chart.. 14:18:38 Pre-procedure instructions explained to patient. 14:18:38 Pre-op teaching completed and patient verbalized understanding. 14:18:39 Family unavailable. 14:18:41 Patient NPO since Midnight. 14:18:48 Alarms reviewed by R. N. 14:18:49 Sharps counted by scrub and verified by R.N. 14:18:51 Lab results completed and on chart. 14:19:08 Stress Test: yes; abnormal INFERIOR 14:20:35 Patient received from Pre/Post Procedure Room to CCL 1 Alert and oriented. Tansferred to table in Supine position. 14:20:37 Warm blankets applied, and reginaldo hugger turned on for patient comfort. 14:20:37 Correct patient and procedure confirmed by team. 14:20:38 ECG and BP/O2 sat monitors applied to patient. 14:21:23 Is the patient allergic to Iodine/contrast media? No. 14:21:26 Was the patient premedicated? N/A 14:21:28 Is patient on blood thinner?Yes 14:21:30 Patient diabetic? No. 14:21:33 If diabetic: On Metformin? N/A 14:21:36 ----Pre-sedation anethsthesia assessment.---- 14:21:40 Previous problem with sedation/anesthesia? No ? 14:23:39 Snore? Yes 14:23:41 Sleep apnea? Unknown 14:23:42 Deviated septum? No 14:23:43 Opens mouth fully? Yes 14:23:44 Sticks out tongue? Yes 14:23:48 Airway obstruction? No ? 14:23:49 Dentures? No ? 14:24:05 ACC The patient was administered the following blood thiners within the last 24 hours: ACCPlavix 14:24:19 Modified Compa's test Ulnar < 7 seconds 14:24:22 Patient pain scale 0/10 ?. 14:24:29 IV patent on arrival in left antecubital with 0.9% NaCl at [facility]. 14:24:34 Right Radial & Right Groin area was prepped with chlora-prep and draped in sterile fashion 14:28:13 Pre procedure: right dorsailis pedis pulse 2+ Normal; easily identifiable; not easily obliterated 14:28:19 Vital chart was started 14:28:20 Baseline sample Acquired. 14:28:21 Full Disclosure recording started 14::24 Rhythm: sinus rhythm 14:28:32 Use device set Radial Dx or PCI 14:28:33 ACIST Syringe (04663) opened to sterile field. 14:28:34 Medline Cath Pack ([id number]) opened to sterile field. 14:28:34 Bag Decanter (2002S) opened to sterile field. 14:28:35 ACIST Hand Control (29741) opened to sterile field. 14:28:36 ACIST Manifold (50802) opened to sterile field. 14:28:37 MBrace Wrist Support ([id number]) opened to sterile field. 14:28:37 NEEDLE Cook 21G 4cm Radial ([id number]) opened to sterile field. 14:28:38 Oxygen 2 l/min etCO2 Nasal cannula was administered by Neal Valencia RN; used for procedure; Verbal order read back and verified. 14:28:40 EMERALD Guide Wire (377-892) opened to sterile field. 14:28:40 SHEATH 6FR RAIN ([id number]) opened to sterile field. 14:28:45 Lidocaine 2% 20ml vial added to field was administered by Kyle Laura MD; for local anesthetic; Verbal order read back and verified. 14::47 --------ALL STOP TIME OUT------ 14::47 Final Timeout: patient, procedure, and site verified with staff and physician. All members of the team are in agreement. 14:28:50 Heparin Flush Bag (1000units/500ml NS) 2 bags added to field was administered by Kyle Laura MD; used for procedure; Verbal order read back and verified. 14:28:50 Right Radial & Right Groin site verified by team. 14:28:53 Fire Safety Assessment: A--An alcohol-based skin anteseptic being used preoperatively., C--Open oxygen or nitrous oxide is being used., D--An ESU, laser, or fiber-optic light is being used. 14:28:57 Physical assessment completed. ASA score P 2 - A patient with mild systemic disease as per Kyle Laura MD. 14:28:59 0.9% NaCl 100 ml/hr I.V. was administered by Neal Valencia RN; Per physician; Verbal order read back and verified. 14:29:00 2) 60-89 Mildly reduced kidney function, and other findings (as for stage 1) point to kidney disease. 14:29:04 Maximum allowable contrast dose (3.7 X eGFR X 0.75)222 ml. 14:29:07 Radial Cocktail (Verapamil 2mg/Nitro 400mcg/Heparin 1500units) 1 syringe I.A. was administered by Kyle Laura MD; for vasodilation; Verbal order read back and verified. 14:29:08 Sedation plan: IV Moderate Sedation Medication:Versed, Fentanyl 14:32:50 Risk of Mortality: .1 14:32:52 Risk of blood transfusion: .1 14:32:53 Risk of KENIA: .1 14:34:41 Versed 2 mg I.V. was administered by Neal Valencia RN; for sedation; Verbal order read back and verified. 14:34:48 Fentanyl 100 mcg I.V. was administered by Neal Valencia RN; for sedation; Verbal order read back and verified. 14:40:38 Versed 1 mg I.V. was administered by Neal Valencia RN; for sedation; Verbal order read back and verified. 14:40:42 Fentanyl 50 mcg I.V. was administered by Neal Valencia RN; for sedation; Verbal order read back and verified. 14:41:03 Procedure started. 14:42:42 Local anesthetic to right radial artery with Lidocaine 2% by Kyle Laura MD.INITIAL ACCESS ONLY 14:42:45 Sheath removed intact; hemostasis achieved with Mechanical Compression to the Right Radial artery. 14:45:09 A DIAGNOSTIC Julius 110cm 5Fr catheter ([id number]) was advanced over the wire and used for Procedure. 14:45:14 LV gram done using NOBLE 14:45:30 Injector settings: Ml/sec: 5, Volume: 15, 14:45:47 LV hemodynamics recorded. 14:45:58 EF : 55 % 14:46:20 Versed 1 mg I.V. was administered by Neal Valencia RN; for sedation; Verbal order read back and verified. 14:46:25 Fentanyl 50 mcg I.V. was administered by Neal Valencia RN; for sedation; Verbal order read back and verified. 14:46:31 LCA angiography performed. 14:46:34 Injector settings: Ml/sec: 3, Volume: 6, 14:50:51 RCA angiography performed. 14:50:54 Injector settings: Ml/sec: 3, Volume: 6, 14:51:03 ACCDominant side:Co-Dominant 14:56:42 Catheter removed. 14:56:43 Proceeding to intervention. 14:56:48 Use device set VALENTÍN PCI 14:57:18 INFLATOR Merit BasixCompak (MA3287) opened to sterile field. 14:57:28 [place] Verrata Plus pressure wire ([id number]) opened to sterile field. 14:57:49 TUBING High Pressure Extension Tubing (Valentín) (RI0920Q) opened to sterile field. 14:58:28 5 Fr JULIUS guide catheter was inserted over the wire 14:59:36 FFR/IFR wire advanced. 14:59:37 Heparin Bolus 2000 units I.V. was administered by Neal Valencia RN; for anticoagulation; verified with dr laura Verbal order read back and verified. 15:01:43 Wire advanced across lesion. 15:02:05 mCirc lesion measured at 1.07 with IFR 15:02:39 mCirc lesion measured at 1.03 with IFR 15:03:59 LAD lesion measured at .98 with IFR 15:04:54 Diag1 lesion measured at 1.00 with IFR 15:06:50 Versed 1 mg I.V. was administered by Neal Valencia RN; for sedation; Verbal order read back and verified. 15:09:22 Wire removed. 15:12:49 Guide catheter removed. 15:13:29 ZEPHYR REGULAR TR BAND (036932) opened to sterile field. 15:14:14 A 6 Fr Short sheath was inserted into the Right Radial artery 15:15:09 Procedure ended.(Physican Out) 15:15:32 Fluoroscopy time 08.20 minutes. 15:15:36 Fluoroscopy dose: 565 mGy 15:15:36 Flurop Dose total: 565 15:15:43 Dose Area Product 14616 mGy/cm. 15:15:46 Contrast amount:Isovue 370 76ml. 15:15:48 Maximum allowable dose exceeded? No. 15:15:49 Sharps counted by scrub and verified by R.N. 15:15:54 [place] band inflated with 12cc of air. 15:15:56 Post Procedure Pulses reassessed and unchanged 15:15:59 Post procedure: right dorsailis pedis pulse 2+ Normal; easily identifiable; not easily obliterated. 15:16:02 Post-procedure physical assessment completed. ASA score P 2 - A patient with mild systemic disease as per Kyle Laura MD. 15:16:05 Post procedure rhythm: unchanged. 15:16:08 Estimated blood loss: 10 ml 15:16:10 Post procedure instruction explained to patient.Patient verbalizes understanding. 15:16:10 Patient needs reinforcement of post procedure teaching. 15:16:53 Procedure type changed to Cath procedure, Diagnostic procedure, LHC, C w/Coronaries, FFR/IVUS, FFR Initial, FFR Additional, Sedation Charges, Moderate Sedation up to 45 minutes 15:17:08 Procedure Complication : No complications 15:17:13 [facility] Findings: MVD- PCI performed (see procedure note) 15:17:15 Vital chart was stopped 15:18:14 Procedure and supply charges have been captured, reviewed, submitted and are correct. 15:18:25 Operative report dictated upon procedure completion. 15:18:25 See physician's report for complete and final results. 15:18:42 Report given to Pre/Post Procedure Room. 15:18:46 Patient transfered to Pre/Post Procedure Room with Stretcher. 15:18:48 Procedure ended. 15:18:48 Full Disclosure recording stopped 15:18:58 End room use (Document Last) 15:19:16 End room use (Document Last) 15:19:38 End room use (Document Last) Device Usage Item Name Manufacture Quantity Catalog Hospital Part Current Mini mal Lot# / Number Charge Number Stock Stock Serial# Code ACIST Acist 1 97177 808225 632510 [id number] 20 Syringe Medical (34956) Systems Inc Medline Medline 1 [id number] 308633 01941 422588 5 Cath Pack ([id number]) Bag Microtek 1 300582 19701 326437 5 Decanter Medical Inc. () ACIST Hand Acist 1 88298 828505 679074 739013 5 Control Medical (18439) Systems Inc ACIST Acist 1 48449 761106 277158 688232 5 Manifold Medical (48127) Systems Inc MBrace Advanced 1 140-0250-00 514887 02855 005481 5 Wrist Vascular Support Dynamics ([id number]) NEEDLE Cook Cook Medical 1 T46177 500159 573173 479368 5 21G 4cm Radial (O35450) EMERALD Cardinal 1 502-455 239327 838556 618364 5 Guide Wire Health (502455) SHEATH 6FR Cardinal 1 8895844 553152 7067068 658092 5 [facility] (6018968) DIAGNOSTIC Terumo 1 40-5023 613985 748265 310718 5 Julius 110cm 5Fr catheter (049151) INFLATOR Merit 1 [id number] 716464 911047 721765 15 [facility] Medical BasixCompak (NN4651) [place] 1 [id number] 391541 [id number] 892924 5 Verrata Plus pressure wire (34406U) TUBING High Merit 1 [id number] 791453 04545 433747 10 Pressure Medical Extension Tubing (Laura) ([id number]) ZEPHYR Cardinal 1 090903 226423 5186173 675989 5 REGULAR TR Health BAND (736747) Signature Audit Ellerbe Stage Time Signature Unsigned Intra-Procedure 03/13/2020 Leni Rico 3:19:16 PM RT(R) Intra-Procedure 03/13/2020 Neal Valencia RN 3:19:38 PM Intra-Procedure 03/13/2020 Kyle Laura MD 3:19:58 PM [id number] [place] [address]
[2020-03-13] MEDS ORDERED: HYDROCHLOROTHIA25 MG PO (11:48)
[2020-03-13] MEDS ORDERED: BAYER CHEWABLE81 MG PO (11:48)
[2020-03-13] MEDS ORDERED: MOBIC7.5 MG PO (11:48)
[2020-03-13] MEDS ORDERED: BENADRYL25 MG PO (11:48)
[2020-03-13 12:08] VITALS: BP 170/95; Ht 180.3 cm; Wt 81.8 kg
[2020-03-13 12:19] LABS: HEMATOCRIT 46.2 % (42.0-54.0); HEMOGLOBIN 14.8 g/dL (13.5-17.5); MCV 84.2 fL (80.0-100.0); MEAN PLATELET VOLUME 9.9 fL (7.4-10.4); RBC 5.49 10x6/uL (4.20-6.10); RDW 13.5 % (11.5-14.5); WBC 3.6 10x3/uL (4.8-10.8)
[2020-03-13 12:21] LABS: PLATELET COUNT 228 10x3/uL (130-400)
[2020-03-13 12:32] LABS: ALT (SGPT) 38 U/L (10-68); CALC OSMOLALITY 277 mosm/kg (275-300); CALCIUM 8.9 mg/dL (8.5-10.1); CARBON DIOXIDE 28.3 mmol/L (21.0-32.0); CHLORIDE - SERUM 103 mmol/L (98-107); CHOL - HDL RATIO 1.7 ratio (2.3-4.9); CHOLESTEROL, TOTAL 85 mg/dL (0-200); GLUCOSE 104 mg/dL (74-106); HDL CHOLESTEROL 51 mg/dL (32-96); LDL CHOLESTEROL 23 mg/dL (0-100); LDL-HDL RATIO 0.5 ratio (1.5-3.5); SODIUM 139 mmol/L (136-145); TRIGLYCERIDE 58 mg/dL (30-200); UREA NITROGEN 13 mg/dL (7-18); eGFR NON AFRICAN AMERICAN 80 mL/min (90-120)
[2020-03-13 14:18] LABS: EOSINOPHILS 5 % (0-7); LYMPHOCYTES 48 % (15-50); MONOCYTES 11 % (2-11); NEUTROPHILS 35 % (40-80); PLATELET ESTIMATE NORMAL; ROULEAUX OCC; SMUDGE CELLS OCC
--- NOTE | 2020-03-13 15:30 | NUR ---
REC'D TO ROOM 4 VIA STRETCHER FROM SUPERVISOR HISTOLOGY. MONITORS ESTAB. PT AROUSES TO NAME. SEE TEENAGE PROGRAM DIRECTOR. ALARMS ON AND C/L IN REACH.
--- NOTE | 2020-03-13 15:45 | NUR ---
R WRIST SITE C/D/I, NO S/S BLEEDING OR HEMATOMA. R HAND WARM, PULSES PALP. PT RESTING QUIETLY, B/P 104/67, HR 62. ALARMS ON AND C/L IN REACH.
--- NOTE | 2020-03-13 16:15 | NUR ---
R WRIST SITE C/D/I. NO S/S BLEEDING OR HEMATOMA. PT GIVEN CRACKERS AND PEANUT BUTTER PER REQUEST. VSS. ALARMS ON AND C/L IN REACH.
--- NOTE | 2020-03-13 16:30 | NUR ---
SPOKE WITH PT , UPDATE GIVEN, D/C INSTRUCTIONS REVIEWED. PLAN FOR PT D/C AT 1815. PT R WRIST SITE C/D/I, NO S/S BLEEDING OR HEMATOMA.
--- NOTE | 2020-03-13 17:00 | NUR ---
2CC AIR REMOVED FROM Z BAND, NO S/S BLEEDING OR HEMATOMA. VSS. PT DENIES OTHER NEEDS.
--- NOTE | 2020-03-13 17:10 | NUR ---
DR. CHOE IN TO SEE PT, UPDATE GIVEN AND QUESTIONS ANSWERED.
--- NOTE | 2020-03-13 17:20 | NUR ---
PT VOIDED 350CC CLEAR, YELLOW URINE. TOTAL OF 5CC AIR REMOVED FROM Z BAND, NO S/S BLEEDING OR SWELLING.
--- NOTE | 2020-03-13 17:45 | NUR ---
ALL AIR REMOVED FROM Z BAND, NO S/S BLEEDING OR HEMATOMA. PT ATE ALL OF SANDWICH, DENIES PAIN OR NEEDS. C/L IN REACH.
--- NOTE | 2020-03-13 18:03 | NUR ---
R WRIST SITE C/D/I, NO S/S BLEEDING OR HEMATOMA. PIV D/C'D INTACT, DSG APPLIED. PT ALLOWED UP TO GET DRESSED.
--- NOTE | 2020-03-13 18:15 | NUR ---
R WRIST SITE C/D/I, Z BAND REMOVED, DSG AND ARM BOARD APPLIED. ALL DISCHARGE INSTRUCTIONS REVIEWED WITH PT - INCLUDING RESTRICTIONS AND FOLLOW-UP APPT. PT VERBALIZES UNDERSTANDING.
--- NOTE | 2020-03-13 18:25 | NUR ---
PT D/C'D VIA TO PRIVATE VEHICLE WITH . PT HAS ALL BELONGINGS AND PAPER WORK.
== END 2020-03-13 18:25 | disposition home or self-care (01) ==
LOC: D.CATH 11:29
PROVIDERS: ATTEND Internal Medicine Cardiovascular Disease
DX: I25.119 Atherosclerotic heart disease of native coronary artery with unspecified angina pectoris (principal); I10 Essential (primary) hypertension; R06.00 Dyspnea, unspecified; E78.5 Hyperlipidemia, unspecified